=== PATIENT | female | born 1960 | race Hispanic/Latino ===

== ENCOUNTER 2017-10-26 10:31 | Inpatient (IN) | payer MEDICARE, SELFPAY ==
[2017-10-26 10:32] VITALS: BMI 31.4
--- NOTE | 2017-10-26 11:05 | C.PDOC ---
History Of Present Illness 56 y/o female presents to the ER complaining of left flank pain which has been present for 2.5 hours. She reports that the pain is similar to when she had kidney stones. She reports that she had four kidney stones in the past. Pt has nausea and and started vomiting in ED. Denies fever, diarrhea. Time Seen by Provider: 10/26/17 11:02 Chief Complaint (Nursing): Abdominal Pain History Per: Patient History/Exam Limitations: no limitations Onset/Duration Of Symptoms: Hrs Current Symptoms Are (Timing): Still Present Location Of Pain/Discomfort: LLQ, Other (left flank) Past Medical History Reviewed: Historical Data, Nursing Documentation, Vital Signs Vital Signs: Last Vital Signs Temp 98.6 F 10/26/17 14:50 Pulse 109 H 10/26/17 16:01 Resp 20 10/26/17 16:01 BP 108/66 10/26/17 16:01 Pulse Ox 96 10/26/17 16:01 - Medical History PMH: Anxiety, Depression, HTN, Hyperlipidemia, Seizures Surgical History: Cholecystectomy (07/2017) - [facility] Procedures TETANUS TOXOID ADMINIST (08/29/13) Family History: States: No Known Family Hx - Social History Hx Tobacco Use: No Hx Alcohol Use: No Hx Substance Use: No - Immunization History Hx Tetanus Toxoid Vaccination: Yes (08/29/2013) Hx Influenza Vaccination: Yes (2 weeks ago) Hx Pneumococcal Vaccination: No Review Of Systems Except As Marked, All Systems Reviewed And Found Negative. Gastrointestinal: Positive for: Nausea, Vomiting, Other (left flank pain). Negative for: Diarrhea Physical Exam - Physical Exam Appears: Non-toxic, No Acute Distress Skin: Normal Color, Warm Head: Atraumatic, Normacephalic Eye(s): bilateral: Normal Inspection Ear(s): Bilateral: Normal Nose: Normal Oral Mucosa: Moist Lips: Normal Appearing Neck: Normal, Normal ROM, Supple Chest: Symmetrical Cardiovascular: Rhythm Regular Gastrointestinal/Abdominal: Tenderness (left flank tenderness, LLQ) Back: CVA Tenderness (left) Neurological/Psych: Oriented x3, Normal Speech, Normal Motor, Normal Sensation ED Course And Treatment - Laboratory Results Result Diagrams: 10/26/17 11:18 10/26/17 11:18 Lab Interpretation: Abnormal (LEUKOCYTOPENIA) O2 Sat by Pulse Oximetry: 100 (RA) Pulse Ox Interpretation: Normal - CT Scan/US abd/pelvis CT Other Rad Studies (CT/US): Read By Radiologist, Radiology Report Reviewed CT/US Interpretation: Accession No. : [id number]. Patient Name / ID : VICTOR MANUEL DUTTA / [id number]. Exam Date : 10/26/2017 12:30:03 ( Approved ). Study Comment : Sex / Age : F / 56Y. Creator : IMANI WHITE. Dictator : Rn Liaison : Geophysical Support Specialist : IMANI WHITE. Approver2 : Report Date : 10/26 13:05:00. My Comment : . [facility] Division of Radiology. [address] [place] [address]. Tel. no. . . . Patient Name: TRA RUSH . Pt. Address: [address] [place] [address] Rec #: [id number]. [place] [address]: Divya Bermudez PA-C. Pt Order Location: [facility] : Female Age: 56 Order #: [id number]. Reason for exam: LEFT FLANK PAIN, R/O KIDNEY STONES. . . . . . CT Scan. . . ABD PELVIS W/O PO OR IV CONT Exam Date: 10/26/17. . This imaging exam was performed at [facility]. EXAM: CT Abdomen and Pelvis Without Intravenous Contrast. . CLINICAL HISTORY: 56 years old, female; Pain; Abdominal pain; Flank; Left lower quadrant (llq);. Additional info: Left flank pain, R/O kidney stones. . TECHNIQUE: Axial computed tomography images of the abdomen and pelvis without. intravenous contrast. All CT scans at this facility use one or more dose. reduction techniques, viz.: automated exposure control; ma/kV adjustment per. patient size (including targeted exams where dose is matched to indication;. i.e. head); or iterative reconstruction technique. 593 images are. submitted.Limitations: Absence of IV contrast decreases sensitivity for. detecting solid organ and vascular abnormality. Coronal and sagittal reformatted images were created and reviewed. . COMPARISON: No relevant prior studies available. . FINDINGS: Lower thorax: There is left perinephric inflammatory change with moderate to. severe left hiatal ureteronephrosis and a 6 mm left proximal ureter stone. representing acute obstructive uropathy. There is bibasilar atelectasis. Moderate hiatal hernia with herniation of gastric fundus into the chest. There. is gastric wall thickening representing underdistention versus gastritis. There is delayed emptying of the hiatal hernia versus descending congestion. versus stasis. Minimal anterior pericardial effusion. . ABDOMEN: Liver: Unremarkable. Gallbladder and bile ducts: Cholecystectomy. Pancreas: Unremarkable. No ductal dilation. Spleen: Unremarkable. No splenomegaly. Adrenals: Unremarkable. No mass. Kidneys and ureters: Nonobstructive right renal stone. Right-sided. extrarenal pelvis with mild distention of right renal pelvis and right proximal. ureter. The calcifications seen in the right hemipelvis on image 140 series 3. its posterior to the ureter. There is hyperdensity within the left kidney seen. on image 61 series 3. Stomach and bowel: Nonspecific gastric thickening likely due to under. distention. Correlation with clinical data is recommended if gastritis is. suspected. There are nonspecific fluid filled small bowel loops. These. findings can represent ileus versus enteritis versus slow transit versus. peristalsis. Appendix: Normal appendix. . PELVIS: Bladder: Partially distended bladder. Reproductive: Uterus is seen. . ABDOMEN and PELVIS: Intraperitoneal space : Unremarkable. No free air. No significant fluid. collection. Bones/joints : No acute fracture. No dislocation. Soft tissues: Umbilical hernia There is a fat-containing umbilical hernia. Vasculature: Unremarkable. No abdominal aortic aneurysm. Lymph nodes: Unremarkable. No enlarged lymph nodes. . IMPRESSION: 1. There is left perinephric inflammatory change with moderate to severe left. hiatal ureteronephrosis and a 6 mm left proximal ureter stone representing. acute obstructive uropathy. . Dictated By: IMANI WHITE. Dictated Date/Time: 10/26/17 1305. Signed By: IMANI WHITE MD. Date Signed: 10/26/171304. Transcribed By: [facility]. Transcribe Date/Time: 10/26/171304 Progress Note: Dr. Michael paged 1:[address] Michael at 2:28, he will evaluate the pt. - Physician Consult Information Physician Contacted: Messi Payton Outcome Of Conversation: accepted the pt Medical Decision Making Medical Decision Making: Impression: Left lower quadrant pain Plan: --EKG --Labs Disposition Counseled Patient/Family Regarding: Studies Performed, Diagnosis - Disposition Disposition: HOSPITALIZED Disposition Time: 13:57 Condition: STABLE - Clinical Impression Clinical Impression: Leukocytopenia, Pyelonephritis, Kidney stone on left side Decision To Admit - Pt Status Changed To: Hospital Disposition Of: Inpatient - Admit Certification Admit to Inpatient:: After my assessment, the patient will require hospitalization for at least two midnights. This is because of the severity of symptoms shown, intensity of services needed, and/or the medical risk in this patient being treated as an outpatient. - InPatient: Physician Admission Certification:: LEUKOCYTOPENIA, PYELONEPHRITIS, KIDNEY STONE - . Bed Request Type: Regular Admitting Physician: Messi Payton Patient Diagnosis: Leukocytopenia, Pyelonephritis, Kidney stone on left side
[2017-10-26] MEDS ORDERED: Sodium Chloride 0.9% 1,000 ML IV ONE ×2 (11:07→16:13)
[2017-10-26 11:29] LABS: BASO % 0.5 % (0.0-2.0); EOS % 1.1 % (0.0-4.0); HEMATOCRIT 33.6 % (34.0-47.0); LYMPH # 0.3 K/uL (1.0-4.3); LYMPH % 25.3 % (20.0-40.0); MEAN CELL VOLUME 92.6 fL (81.0-99.0); MEAN CORPUSCULAR HEMOGLOBIN 30.7 pg (27.0-31.0); MEAN CORPUSCULAR HGB CONC 33.1 g/dL (33.0-37.0); MEAN PLATELET VOLUME 7.2 fL (7.2-11.7); MONO % 1.2 % (0.0-10.0); NRBC % 0.3 % (0.0-2.0); RED CELL DISTRIBUTION WIDTH 13.7 % (11.5-14.5)
[2017-10-26 11:35] LABS: WHITE BLOOD COUNT 1.3 K/uL (4.8-10.8)
[2017-10-26 11:35] LABS: RBC URINE 63 /hpf (0-3); URINE BACTERIA MANY (<OCC); URINE BILIRUBIN NEGATIVE (NEGATIVE); URINE BLOOD 2+ (NEGATIVE); URINE COLOR Yellow (YELLOW); URINE GLUCOSE (UA) NORMAL (Normal); URINE KETONE NEGATIVE (NEGATIVE); URINE LEUKOCYTE ESTERASE 1+ Leu/uL (Negative); URINE PROTEIN NEGATIVE (NEGATIVE); URINE UROBILINOGEN NORMAL mg/dL (0.2-1.0); WBC URINE 15 /hpf (0-5)
[2017-10-26 11:42] LABS: ALKALINE PHOSPHATASE 77 U/L (38-126); ALT/SGPT 32 U/L (9-52); AST/SGOT 24 U/L (14-36); BILIRUBIN,TOTAL 0.5 mg/dL (0.2-1.3); BLOOD UREA NITROGEN 19 mg/dL (7-17); CALCIUM 8.4 mg/dl (8.6-10.4); CARBON DIOXIDE 25 mmol/L (22-30); CHLORIDE 105 mmol/L (98-107); GFR AFRICAN-AMERICAN > 60; GLUCOSE,RANDOM 151 mg/dL (65-105); SODIUM 140 mmol/L (132-148)
[2017-10-26 11:46] LABS: ALB/GLOB RATIO 1.6 (1.0-2.1)
--- NOTE | 2017-10-26 13:05 | CT ---
EXAM: CT Abdomen and Pelvis Without Intravenous Contrast CLINICAL HISTORY: 56 years old, female; Pain; Abdominal pain; Flank; Left lower quadrant (llq); Additional info: Left flank pain, R/O kidney stones TECHNIQUE: Axial computed tomography images of the abdomen and pelvis without intravenous contrast. All CT scans at this facility use one or more dose reduction techniques, viz.: automated exposure control; ma/kV adjustment per patient size (including targeted exams where dose is matched to indication; i.e. head); or iterative reconstruction technique. 593 images are submitted.Limitations: Absence of IV contrast decreases sensitivity for detecting solid organ and vascular abnormality. Coronal and sagittal reformatted images were created and reviewed. COMPARISON: No relevant prior studies available. FINDINGS: Lower thorax: There is left perinephric inflammatory change with moderate to severe left hiatal ureteronephrosis and a 6 mm left proximal ureter stone representing acute obstructive uropathy. There is bibasilar atelectasis. Moderate hiatal hernia with herniation of gastric fundus into the chest. There is gastric wall thickening representing underdistention versus gastritis. There is delayed emptying of the hiatal hernia versus descending congestion versus stasis. Minimal anterior pericardial effusion. ABDOMEN: Liver: Unremarkable. Gallbladder and bile ducts: Cholecystectomy. Pancreas: Unremarkable. No ductal dilation. Spleen: Unremarkable. No splenomegaly. Adrenals: Unremarkable. No mass. Kidneys and ureters: Nonobstructive right renal stone. Right-sided extrarenal pelvis with mild distention of right renal pelvis and right proximal ureter. The calcifications seen in the right hemipelvis on image 140 series 3 its posterior to the ureter. There is hyperdensity within the left kidney seen on image 61 series 3. Stomach and bowel: Nonspecific gastric thickening likely due to under distention. Correlation with clinical data is recommended if gastritis is suspected. There are nonspecific fluid filled small bowel loops. These findings can represent ileus versus enteritis versus slow transit versus peristalsis. Appendix: Normal appendix. PELVIS: Bladder: Partially distended bladder. Reproductive: Uterus is seen. ABDOMEN and PELVIS: Intraperitoneal space: Unremarkable. No free air. No significant fluid collection. Bones/joints: No acute fracture. No dislocation. Soft tissues: Umbilical hernia There is a fat-containing umbilical hernia. Vasculature: Unremarkable. No abdominal aortic aneurysm. Lymph nodes: Unremarkable. No enlarged lymph nodes. IMPRESSION: 1. There is left perinephric inflammatory change with moderate to severe left hiatal ureteronephrosis and a 6 mm left proximal ureter stone representing acute obstructive uropathy.
[2017-10-26] MEDS ORDERED: cefTRIAXone IV 1 gm in Dextros 50 ML IV ONE (13:50)
--- NOTE | 2017-10-26 13:57 | CP.PCM.HP ---
History of Present Illness - History of Present Illness History of Present Illness: cc: "left sided back pain" HPI: Patient is a 56 year old female with PMHx of hypertension, hx of kidney stone, Borderline schizophrenia disorder, seizure disorder s/p traumatic brain injury , major depressive disorder, anemia presenting to the ED complaining of left sided back pain. Patient's is at bedside. Patient reports she suddenly felt a sharp pain come from her left sided back. She says she also felt pain in her left lower quadrant. She said she was feeling fine prior to this morning. She denied any fevers, chills, dysuria, hematuria. She says the pain got so severe that she became nauseous. When she came to the ED , she vomited, primarily soda that she drank earlier. She says she knew it was a kidney stone because she had passed one a few years ago, after she was hospitalized for it, though she never strained her urine so it's composition is unknown. She denies taking any medications for this problem PMD: Dr. Ignacio Polanco, [facility] Psychiatrist: Dr. Hernandez- Neurologist: Tenzin Donnelly - PMD: As stated above PSHx: Cholecystectomy (4 years ago) and pelvic cystectomy (40 years ago) Allergies: Dilantin, Prozac, Darvocet Fam hx: Father- stomach cancer, Mother- NIDDM, dementia Social hx: Quit smoking ciggarettes in 2008, previously smoked 1/2 ppd 40 years. Currently uses e-ciggarettes. Quit drinking about 5 years ago, previously social drinker. Quit smoking marijuana 5 years ago. 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 2 children. Patient is full code. Patient states her will make medical directions in the event she is no longer able to do so. Present on Admission - Present on Admission Any Indicators Present on Admission: No Review of Systems - Constitutional Constitutional: absent: Chills, Fever, Frequent Falls, Night Sweats, Weakness - EENT Eyes: absent: Blind Spots, Blurred Vision Nose/Mouth/Throat: absent: Nasal Congestion, Nasal Discharge, Nose Pain - Breasts Breasts: absent: Mass, Pain, Swelling - Cardiovascular Cardiovascular: absent: Chest Pain, Claudication, Leg Edema, Palpitations, Pedal Edema - Respiratory Respiratory: absent: Cough, Dyspnea, Hemoptysis, Wheezing - Gastrointestinal Gastrointestinal: absent: Abdominal Pain, Constipation, Excessive Flatus, Fecal Incontinence, Loose Stools, Melena, Nausea, Vomiting - Genitourinary Genitourinary: Flank Pain. absent: Change in Urinary Stream, Difficulty Urinating, Dysuria, Hematuria, Pyuria - Musculoskeletal Musculoskeletal: absent: Arthralgias, Atrophy, Numbness, Stiffness, Tingling - Integumentary Integumentary: absent: Bleeding Lesions, Change in Hair, Striae, Swelling, Wounds - Psychiatric Psychiatric: absent: Anxiety, Mood Swings, Panic Attacks, Suicidal Ideation - Endocrine Endocrine: absent: Fatigue, Palpitations Past Patient History - Past Social History Smoking Status: Former Smoker Chewing Tobacco Use: No Cigar Use: No Alcohol: None Drugs: Cannabis (hx of, 5 years ago) Home Situation {Lives}: With Family - CARDIAC Hx Hypertension: Yes - NEUROLOGICAL Hx Seizures: Yes - PSYCHIATRIC Hx Anxiety: Yes Hx Depression: Yes Hx Substance Use: No - SURGICAL HISTORY Hx Cholecystectomy: Yes (07/2017) - ANESTHESIA Hx Anesthesia: Yes Hx Anesthesia Reactions: No Meds Allergies/Adverse Reactions: Allergies Allergy/AdvReac Type Severity Reaction Status Date / Time citric acid Allergy RASH Verified 10/26/17 10:40 fluoxetine HCl [From Prozac] Allergy RASH Verified 10/26/17 10:40 phenytoin sodium Allergy RASH Verified 10/26/17 10:40 [From Dilantin] phenytoin sodium extended Allergy RASH Verified 10/26/17 10:40 [From Dilantin] darvon Allergy Uncoded 10/20/16 09:33 Physical Exam - Constitutional Appears: Non-toxic, No Acute Distress - Head Exam Head Exam: ATRAUMATIC, NORMAL INSPECTION, NORMOCEPHALIC - Eye Exam Pupil Exam: NORMAL ACCOMODATION - ENT Exam ENT Exam: Mucous Membranes Moist - Neck Exam Neck exam: Positive for: Normal Inspection - Respiratory Exam Respiratory Exam: Clear to Auscultation Bilateral, NORMAL BREATHING PATTERN. absent: Prolonged Expiratory Phase, Rales, Rhonchi, Wheezes - Cardiovascular Exam Cardiovascular Exam: REGULAR RHYTHM, +S1, +S2 - GI/Abdominal Exam GI & Abdominal Exam: Normal Bowel Sounds, Soft, Tenderness (LLQ and LUQ discomfort upon palpation) - Extremities Exam Extremities exam: Positive for: normal capillary refill, normal inspection - Back Exam Back exam: tenderness (bilateral CVA tenderness, left >> right) - Neurological Exam Neurological exam: Alert, CN II-XII Intact, Oriented x3 - Psychiatric Exam Psychiatric exam: Normal Affect, Normal Mood - Skin Skin Exam: Dry, Intact, Normal Color, Warm Results - Vital Signs Recent Vital Signs: Last Vital Signs Temp 98.0 F 10/26/17 10:39 Pulse 93 H 10/26/17 12:03 Resp 18 10/26/17 12:03 BP 130/71 10/26/17 12:03 Pulse Ox 100 10/26/17 13:44 - Labs Result Diagrams: 10/26/17 11:18 10/26/17 11:18 Labs: Laboratory Results - last 24 hr 10/26/17 10/26/17 10/26/17 11:18 11:18 11:19 WBC 1.3 L* D RBC 3.63 L Hgb 11.1 D Hct 33.6 L MCV 92.6 D MCH 30.7 MCHC 33.1 RDW 13.7 Plt Count 300 D MPV 7.2 Neut % (Auto) 71.9 Lymph % (Auto) 25.3 Glynn % (Auto) 1.2 Eos % (Auto) 1.1 Baso % (Auto) 0.5 Neut # 1.0 L Lymph # 0.3 L Glynn # 0.0 Eos # 0.0 Baso # 0.0 Differential Comment Sodium 140 Potassium 4.0 Chloride 105 Carbon Dioxide 25 Anion Gap 14 BUN 19 H Creatinine 1.0 Est GFR ( Amer) > 60 Est GFR (Non-Af Amer) 57 Random Glucose 151 H Calcium 8.4 L Total Bilirubin 0.5 AST 24 ALT 32 Alkaline Phosphatase 77 Total Protein 6.0 L Albumin 3.7 Globulin 2.3 Albumin/Globulin Ratio 1.6 Lipase 70 Urine Color Yellow Urine Clarity Hazy Urine pH 6.0 Ur Specific Scarbro 1.013 Urine Protein Negative Urine Glucose (UA) Normal Urine Ketones Negative Urine Blood 2+ H Urine Nitrate Negative Urine Bilirubin Negative Urine Urobilinogen Normal Ur Leukocyte Esterase 1+ H Urine WBC (Auto) 15 H Urine RBC (Auto) 63 H Ur Squamous Epith Cells 7 H Urine Bacteria Many H Assessment & Plan - Assessment and Plan (Free Text) Assessment: Code Sepsis WBC <4 HR >100 Source is likely from Pyelonephritis/ obstructive uropathy Lactate 4.9 Patient started on Ceftriaxone 1gm IVPB Q12h Consult ID- Dr. Ontiveros Procalcitonin pending VBG shock ordered for 5:47pm, will f/u. 1L fluid bolus given prior to code sepsis. 1L fluid bonus over 30 min after code sepsis called Left Proximal Ureter Obstructive Uropathy 2/2 6mm stone Normal Saline 100cc/hr Ceftriaxone 1gm IVPB Q12h Toradol 15mg IVP Q6h PRN for moderatepain Toradol 30mg IV Q6h PRN severe pain Consult Uro- Dr. Nicholas Michael Ct Abdomen/pelvis- 10/26/17- there is left perinephric inflammatory change with mdoerate to severe left hiatal ureteronephrosis and a 6mm left proximal ureter stone representing acute obstructive uropathy Left Pyelonephritis Ceftriaxone as above Followup Blood and urine cultures Tylenol 650mg PO Q6h PRN for fever Lactate 4.9 U/A- +1 LE, WBC 15, urine bacteria- many f/u urine culture Leukopenia f/u HIV Patient is followed by Hemeoncologist outpatient. Will need to followup on discharge Hypertension Metoprolol Tartrate 25mg PO BID - hold for SBP < 100 or HR <60 Amlodipine 10mg PO Daily Schizophrenia Duloxetine HCL 60mg cap once daily in AM (6am) Duloxetine HCL 30mg cap once daily in PM (3pm) Clonazepam 0.25mg ODT once at bedtime Followup with psychiatrist, Dr. Hernandez, upon discharge EKG NSR History of Seizure disorder secondary to traumatic brain injury Phenobarbital 32.4mg TID Levetiracetam 750mg PO BID Adderall 10mg PO BID- prescribed to counter side effect of lethargy of phenobarbital, per patient Followup with neurologist, Dr. Donnelly upon discharge Prophylaxis Protonix 40mg PO Daily DVT risk score of 1- ordered bilateral SCDs Florastor 250mg PO BID- not to be given within 2 hours of antibiotic administration Heart Healthy diet, 2gm Na, Mod CHO
[2017-10-26 15:09] LABS: VENOUS BLOOD GAS BASE EXCESS -4.1 mmol/L (0.0-2.0); VENOUS BLOOD GAS PCO2 44 mmHg (40-60); VENOUS BLOOD PH 7.31 (7.32-7.43)
--- NOTE | 2017-10-26 16:14 | PCM.SEPTIC ---
Sepsis Progress Note - Reassessment Type Date of Evaluation: 10/26/17 Time of Evaluation: 15:54 Reassessment Type: Non-invasive reassessment - Non Invasive Reassessment Were the most recent vital sign reviewed: Yes Vital Sign (Latest): Temp Pulse Resp BP Pulse Ox 98.6 F 109 H 20 108/66 96 10/26/17 14:50 10/26/17 16:01 10/26/17 16:01 10/26/17 16:01 10/26/17 16:01 Cardiovascular: Yes: Regular Rate, Rhythm, Tachycardia. No: Edema, Gallop, JVD , Murmur, Bradycardia, Ectopy, Friction Rub, Irregularly Irregular Respiratory: Yes: Normal Breath Sounds. No: Decreased Breath Sounds, Crackles, Rales, Rhonchi, Stridor, Plerual Rub Capillary Refill: Normal (Less than 2 sec) Pulses: Normal Radial, Normal Dorsalis Pedis, Normal Posterior Tibialis Skin: Normal Color, Warm, Dry Was a central venous oxygen measurement obtained within 6 hours after the presentation of septic shock: No Was a bedside cardiovascular ultrasound performed within 6 hours after the presentation of septic shock: No Was a passive leg raise performed or was a fluid challenge performed within 6 hrs of the initial fluid bolus: Yes Fluid Challenge performed: Yes
[2017-10-26] MEDS: Sodium Chloride 0.9% 1,000 ML IV SCH (16:20)
--- NOTE | 2017-10-26 16:34 | CP.PCM.CON ---
Past Patient History - Past Social History Smoking Status: Former Smoker Chewing Tobacco Use: No Cigar Use: No Alcohol: None Drugs: Cannabis (hx of, 5 years ago) Home Situation {Lives}: With Family - CARDIAC Hx Hypertension: Yes - NEUROLOGICAL Hx Seizures: Yes - PSYCHIATRIC Hx Anxiety: Yes Hx Depression: Yes Hx Substance Use: No - SURGICAL HISTORY Hx Cholecystectomy: Yes (07/2017) - ANESTHESIA Hx Anesthesia: Yes Hx Anesthesia Reactions: No Meds Allergies/Adverse Reactions: Allergies Allergy/AdvReac Type Severity Reaction Status Date / Time citric acid Allergy RASH Verified 10/26/17 10:40 fluoxetine HCl [From Prozac] Allergy RASH Verified 10/26/17 10:40 phenytoin sodium Allergy RASH Verified 10/26/17 10:40 [From Dilantin] phenytoin sodium extended Allergy RASH Verified 10/26/17 10:40 [From Dilantin] darvon Allergy Uncoded 10/20/16 09:33 - Medications Medications: Current Medications Acetaminophen (Tylenol 325mg Tab) 650 mg PO Q6 PRN PRN Reason: Fever >100.4 F Amlodipine Besylate (Norvasc) 10 mg PO DAILY [facility] Duloxetine HCl (Cymbalta) 30 mg PO DAILY [facility] Duloxetine HCl (Cymbalta) 60 mg PO DAILY [facility] Home Med (Clonazepam [Clonazepam]) 0.25 mg PO HS [facility] Home Med (Dextroamphetamine/Amphetamine [Adderall 10 Mg Tablet]) 10 mg PO BID [facility] Home Med (Levetiracetam [Keppra]) 750 mg PO BID [facility] Home Med (Duloxetine Hcl [Duloxetine Hcl]) 30 mg PO ONCE ONE Stop: 10/27/17 16:00 Sodium Chloride (Sodium Chloride 0.9%) 1,000 mls @ 100 mls/hr IV .Q10H [facility] Last Admin: 10/26/17 16:20 Dose: 100 mls/hr Sodium Chloride (Sodium Chloride 0.9%) 1,000 mls @ 2,000 mls/hr IV .Q30M ONE Stop: 10/26/17 16:42 Ketorolac Tromethamine (Toradol) 30 mg IV Q6 PRN PRN Reason: Pain, severe (8-10) Ketorolac Tromethamine (Toradol) 15 mg IVP Q6 PRN PRN Reason: Pain, moderate (4-7) Metoprolol Tartrate (Lopressor) 25 mg PO BID [facility] Pantoprazole Sodium (Protonix Ec Tab) 40 mg PO DAILY [facility] Risperidone (Risperdal Tab) 2 mg PO DAILY [facility] Saccharomyces Boulardii (Florastor) 250 mg PO BID [facility] Physical Exam - Constitutional Appears: Well - Head Exam Head Exam: ATRAUMATIC, NORMAL INSPECTION, NORMOCEPHALIC - Eye Exam Eye Exam: EOMI, Normal appearance, PERRL Pupil Exam: NORMAL ACCOMODATION, PERRL - ENT Exam ENT Exam: Mucous Membranes Moist, Normal Exam - Neck Exam Neck exam: Positive for: Normal Inspection - Respiratory Exam Respiratory Exam: Decreased Breath Sounds - Cardiovascular Exam Cardiovascular Exam: REGULAR RHYTHM, +S1, +S2 - GI/Abdominal Exam GI & Abdominal Exam: Diminished Bowel Sounds, Soft - Rectal Exam Rectal Exam: Deferred Results - Vital Signs Recent Vital Signs: Last Vital Signs Temp 98.6 F 10/26/17 14:50 Pulse 109 H 10/26/17 16:01 Resp 20 10/26/17 16:01 BP 108/66 10/26/17 16:01 Pulse Ox 96 10/26/17 16:01 - Labs Result Diagrams: 10/26/17 11:18 10/26/17 11:18 Labs: Laboratory Results - last 24 hr 10/26/17 10/26/17 10/26/17 11:18 11:18 11:19 WBC 1.3 L* D RBC 3.63 L Hgb 11.1 D Hct 33.6 L MCV 92.6 D MCH 30.7 MCHC 33.1 RDW 13.7 Plt Count 300 D MPV 7.2 Neut % (Auto) 71.9 Lymph % (Auto) 25.3 [place] % (Auto) 1.2 Eos % (Auto) 1.1 Baso % (Auto) 0.5 Neut # 1.0 L Lymph # 0.3 L [place] # 0.0 Eos # 0.0 Baso # 0.0 Differential Comment pO2 VBG pH VBG pCO2 VBG HCO3 VBG Total CO2 VBG O2 Sat (Calc) VBG Base Excess VBG Potassium Glucose Lactate Crit Value Called To Crit Value Called By Crit Value Read Back Blood Gas Notified Time Sodium 140 Potassium 4.0 Chloride 105 Carbon Dioxide 25 Anion Gap 14 BUN 19 H Creatinine 1.0 Est GFR ( Amer) > 60 Est GFR (Non-Af Amer) 57 Random Glucose 151 H Calcium 8.4 L Total Bilirubin 0.5 AST 24 ALT 32 Alkaline Phosphatase 77 Total Protein 6.0 L Albumin 3.7 Globulin 2.3 Albumin/Globulin Ratio 1.6 Lipase 70 Venous Blood Potassium Urine Color Yellow Urine Clarity Hazy Urine pH 6.0 Ur Specific [place] 1.013 Urine Protein Negative Urine Glucose (UA) Normal Urine Ketones Negative Urine Blood 2+ H Urine Nitrate Negative Urine Bilirubin Negative Urine Urobilinogen Normal Ur Leukocyte Esterase 1+ H Urine WBC (Auto) 15 H Urine RBC (Auto) 63 H Ur Squamous Epith Cells 7 H Urine Bacteria Many H 10/26/17 14:47 WBC RBC Hgb Hct MCV MCH MCHC RDW Plt Count MPV Neut % (Auto) Lymph % (Auto) [place] % (Auto) Eos % (Auto) Baso % (Auto) Neut # Lymph # [place] # Eos # Baso # Differential Comment pO2 14 L VBG pH 7.31 L VBG pCO2 44 VBG HCO3 19.5 VBG Total CO2 23.6 VBG O2 Sat (Calc) 19.1 L VBG Base Excess -4.1 L VBG Potassium 3.5 L Glucose 144 H Lactate 4.9 H* Crit Value Called To Charlene hillman Crit Value Called By Fabian collins Crit Value Read Back Y Blood Gas Notified Time 1508 Sodium 139.0 Potassium Chloride 106.0 Carbon Dioxide Anion Gap BUN Creatinine Est GFR ( Amer) Est GFR (Non-Af Amer) Random Glucose Calcium Total Bilirubin AST ALT Alkaline Phosphatase Total Protein Albumin Globulin Albumin/Globulin Ratio Lipase Venous Blood Potassium 3.5 L Urine Color Urine Clarity Urine pH Ur Specific [place] Urine Protein Urine Glucose (UA) Urine Ketones Urine Blood Urine Nitrate Urine Bilirubin Urine Urobilinogen Ur Leukocyte Esterase Urine WBC (Auto) Urine RBC (Auto) Ur Squamous Epith Cells Urine Bacteria
[2017-10-26 16:59] LABS: MAGNESIUM 1.4 mg/dL (1.6-2.3); PHOSPHOROUS 1.4 mg/dL (2.5-4.5)
--- NOTE | 2017-10-26 17:19 | RAD ---
Chest x-ray single frontal view History: Sepsis. Comparison: 10/20/2016 Findings: Diffuse increased interstitial lung markings. Mild venous congestion. Mild patchy increased markings at the left lung base with some linear atelectasis. Right paratracheal prominence may represent prominent vasculature. Tortuous aorta. Mild bilateral hilar prominence. Degenerative changes in the spine and shoulders. Impression: Diffuse increased interstitial lung markings. Mild venous congestion. Mild patchy increased markings at the left lung base with some linear atelectasis. Right paratracheal prominence may represent prominent vasculature. Tortuous aorta. Mild bilateral hilar prominence.
[2017-10-26] MEDS: Magnesium Sulfate 1 gm in D5W 1 GM/100 ML BAG IVPB SCH ×2 (18:28→18:57)
[2017-10-26] MEDS: Saccharomyces Boulardi 250 mg Cap PO SCH (18:29)
[2017-10-26 18:34] LABS: INR 2.4
[2017-10-26 18:44] LABS: VENOUS BLOOD GAS BASE EXCESS -1.2 mmol/L (0.0-2.0); VENOUS BLOOD GAS PCO2 39 mmHg (40-60); VENOUS BLOOD PH 7.39 (7.32-7.43)
--- NOTE | 2017-10-26 18:50 | PCM.SEPTIC ---
Sepsis Progress Note - Reassessment Type Date of Evaluation: 10/26/17 Time of Evaluation: 18:30 Reassessment Type: Non-invasive reassessment - Non Invasive Reassessment Were the most recent vital sign reviewed: Yes Vital Sign (Latest): Temp Pulse Resp BP Pulse Ox 101.1 F H 108 H 20 99/64 L 96 10/26/17 17:25 10/26/17 17:25 10/26/17 17:25 10/26/17 18:32 10/26/17 17:25 Cardiovascular: Yes: Regular Rate, Rhythm, Tachycardia. No: Chest Non Tender, Edema, Murmur, Bradycardia Respiratory: Yes: Normal Breath Sounds. No: Decreased Breath Sounds, Crackles, Rales, Stridor, Plerual Rub Capillary Refill: Normal (Less than 2 sec) Pulses: Normal Radial, Normal Dorsalis Pedis, Normal Posterior Tibialis Skin: Normal Color, Warm, Dry - Invasive Reassessment (complete 2 of 4) Was a Central Venous Pressure Measurement obtained within 6 Hours after the presentation of septic shock: No Was a central venous oxygen measurement obtained within 6 hours after the presentation of septic shock: No Was a bedside cardiovascular ultrasound performed within 6 hours after the presentation of septic shock: No Was a passive leg raise performed or was a fluid challenge performed within 6 hrs of the initial fluid bolus: No Fluid Challenge performed: No
[2017-10-26] MEDS ORDERED: Magnesium Sulfate 1 gm in D5W 1 GM/100 ML BAG IVPB ONE (21:00)
[2017-10-26] MEDS: clonazePAM 0.25 MG TAB PO SCH (21:22)
[2017-10-27] MEDS: Sodium Chloride 0.9% 1,000 ML IV SCH ×2 (01:59→12:28)
[2017-10-27] MEDS: Potassium & Sodium Phosphate PO SCH ×2 (08:00→17:47)
[2017-10-27 08:52] LABS: VENOUS BLOOD GAS BASE EXCESS -13.1 mmol/L (0.0-2.0); VENOUS BLOOD GAS PCO2 21 mmHg (40-60); VENOUS BLOOD PH 7.32 (7.32-7.43)
[2017-10-27 09:16] LABS: ALB/GLOB RATIO 1.3 (1.0-2.1); ALKALINE PHOSPHATASE 102 U/L (38-126); ALT/SGPT 237 U/L (9-52); AST/SGOT 265 U/L (14-36); BILIRUBIN,TOTAL 2.9 mg/dL (0.2-1.3); BLOOD UREA NITROGEN 22 mg/dL (7-17); CARBON DIOXIDE 21 mmol/L (22-30); CHLORIDE 111 mmol/L (98-107); GFR AFRICAN-AMERICAN > 60; GLUCOSE,RANDOM 95 mg/dL (65-105); POTASSIUM 3.8 mmol/L (3.6-5.2); SODIUM 138 mmol/L (132-148); TOTAL PROTEIN 4.5 g/dL (6.3-8.3)
--- NOTE | 2017-10-27 09:27 | CP.PCM.PN ---
Subjective - Date & Time of Evaluation Date of Evaluation: 10/27/17 Time of Evaluation: 09:00 - Subjective Subjective: clinically same Objective - Vital Signs/Intake and Output Vital Signs (last 24 hours): Temp Pulse Resp BP Pulse Ox 99.0 F 98 H 20 95/53 L 98 10/27/17 04:36 10/27/17 04:36 10/27/17 04:36 10/27/17 04:36 10/27/17 04:36 Intake and Output: 10/27/17 10/27/17 06:59 18:59 Intake Total 2200 Balance 2200 - Medications Medications: Current Medications Acetaminophen (Tylenol 325mg Tab) 650 mg PO Q6H PRN PRN Reason: FOR FEVER OVER 100.4 F Last Admin: 10/26/17 18:40 Dose: 650 mg Amlodipine Besylate (Norvasc) 10 mg PO DAILY [facility] Clonazepam (Klonopin- Half Tab) 0.25 mg PO HS [facility] Last Admin: 10/26/17 21:22 Dose: 0.25 mg Duloxetine HCl (Cymbalta) 30 mg PO DAILY@1500 [facility] Last Admin: 10/26/17 18:31 Dose: 30 mg Duloxetine HCl (Cymbalta) 60 mg PO DAILY@0600 [facility] Last Admin: 10/27/17 04:54 Dose: 60 mg Duloxetine HCl (Cymbalta) 30 mg PO ONCE ONE Stop: 10/27/17 18:03 Enoxaparin Sodium (Lovenox) 40 mg SC DAILY [facility] Home Med (Patient's Own Control Medication Ii) 1 tab PO BID [facility] Sodium Chloride (Sodium Chloride 0.9%) 1,000 mls @ 100 mls/hr IV .Q10H [facility] Last Admin: 10/27/17 01:59 Dose: 100 mls/hr Azithromycin 500 mg/ Sodium (Chloride) 250 mls @ 250 mls/hr IVPB DAILY [facility] Ceftriaxone Sodium 1 gm/ (Dextrose) 100 mls @ 100 mls/hr IVPB Q12H [facility] Last Admin: 10/27/17 04:30 Dose: 100 mls/hr Ketorolac Tromethamine (Toradol) 30 mg IV Q6 PRN PRN Reason: Pain, severe (8-10) Last Admin: 10/27/17 08:27 Dose: 30 mg Ketorolac Tromethamine (Toradol) 15 mg IVP Q6 PRN PRN Reason: Pain, moderate (4-7) Levetiracetam (Keppra) 750 mg PO BID [facility] Last Admin: 10/26/17 18:30 Dose: 750 mg Metoprolol Tartrate (Lopressor) 25 mg PO BID [facility] Last Admin: 10/26/17 18:32 Dose: Not Given Pantoprazole Sodium (Protonix Ec Tab) 40 mg PO DAILY [facility] Phenobarbital (Phenobarbital Tab) 32.4 mg PO TID [facility] Last Admin: 10/26/17 18:31 Dose: 32.4 mg Potassium Phos/Sodium [facility] Stop: 10/27/17 17:01 Risperidone (Risperdal Tab) 2 mg PO DAILY [facility] Saccharomyces Boulardii (Florastor) 250 mg PO BID [facility] Last Admin: 10/26/17 18:29 Dose: 250 mg - Labs Labs: 10/26/17 11:18 10/27/17 08:47 PT 28.4 SECONDS (9.7-12.2) H 10/26/17 18:23 INR 2.4 10/26/17 18:23 APTT 50 SECONDS (21-34) H 10/26/17 18:23 - Constitutional Appears: Well - Head Exam Head Exam: ATRAUMATIC, NORMAL INSPECTION, NORMOCEPHALIC - Eye Exam Eye Exam: EOMI, Normal appearance, PERRL Pupil Exam: NORMAL ACCOMODATION, PERRL - ENT Exam ENT Exam: Mucous Membranes Moist, Normal Exam - Neck Exam Neck Exam: Full ROM, Normal Inspection. absent: Lymphadenopathy - Respiratory Exam Respiratory Exam: Decreased Breath Sounds - Cardiovascular Exam Cardiovascular Exam: REGULAR RHYTHM, +S1, +S2 - GI/Abdominal Exam GI & Abdominal Exam: Soft, Diminished Bowel Sounds - Rectal Exam Rectal Exam: Deferred
[2017-10-27] MEDS: Enoxaparin 40 mg Syringe SC SCH (09:56)
[2017-10-27] MEDS ORDERED: DULOXETINE HCL PO SCH (10:00)
[2017-10-27] MEDS ORDERED: Ciprofloxacin 400mg/200ml D5W 400 MG/200 ML BAG IVPB SCH (10:00)
[2017-10-27] MEDS: DEXTROAMPHETAMINE PO SCH ×3 (10:02→17:49)
[2017-10-27] MEDS: [UNRECOGNIZED DRUG - OTHER] PO SCH ×3 (10:02→17:49)
[2017-10-27] MEDS: Pantoprazole 40 mg EC Tab PO SCH (10:05)
[2017-10-27] MEDS: Saccharomyces Boulardi 250 mg Cap PO SCH ×2 (10:05→17:47)
--- NOTE | 2017-10-27 11:11 | CP.PCM.PCO ---
Physician Communication Note - Physician Communication Note Physician Communication Note: See above
[2017-10-27 11:15] LABS: BASO % 0.1 % (0.0-2.0); EOS % 0.1 % (0.0-4.0); HEMATOCRIT 26.5 % (34.0-47.0); LYMPH # 0.8 K/uL (1.0-4.3); LYMPH % 2.5 % (20.0-40.0); MEAN CELL VOLUME 91.9 fL (81.0-99.0); MEAN CORPUSCULAR HEMOGLOBIN 30.2 pg (27.0-31.0); MEAN CORPUSCULAR HGB CONC 32.9 g/dL (33.0-37.0); MEAN PLATELET VOLUME 7.8 fL (7.2-11.7); MONO # 1.4 K/uL (0.0-0.8); MONO % 4.1 % (0.0-10.0); RED CELL DISTRIBUTION WIDTH 13.9 % (11.5-14.5)
[2017-10-27 11:18] LABS: PLATELET COUNT 80 K/uL (130-400); WHITE BLOOD COUNT 33.4 K/uL (4.8-10.8)
[2017-10-27 11:35] LABS: ALB/GLOB RATIO 1.3 (1.0-2.1); ALKALINE PHOSPHATASE 104 U/L (38-126); ALT/SGPT 222 U/L (9-52); AST/SGOT 203 U/L (14-36); BILIRUBIN,TOTAL 2.4 mg/dL (0.2-1.3); BLOOD UREA NITROGEN 22 mg/dL (7-17); CALCIUM 7.1 mg/dl (8.6-10.4); CARBON DIOXIDE 22 mmol/L (22-30); CHLORIDE 110 mmol/L (98-107); GFR AFRICAN-AMERICAN > 60; GLUCOSE,RANDOM 103 mg/dL (65-105); MAGNESIUM 2.3 mg/dL (1.6-2.3); PHOSPHOROUS 4.1 mg/dL (2.5-4.5); POTASSIUM 3.8 mmol/L (3.6-5.2); SODIUM 137 mmol/L (132-148); TOTAL PROTEIN 4.5 g/dL (6.3-8.3)
[2017-10-27 11:52] LABS: INR 1.5
[2017-10-27 12:34] LABS: TOTAL CELLS COUNTED 100
[2017-10-27 12:35] LABS: NEUTROPHIL 61 % (50-75)
[2017-10-27] MEDS ORDERED: DULOXETINE HCL 30 MG PO ONE (15:59)
--- NOTE | 2017-10-27 16:04 | CP.PCM.CON ---
History of Present Illness - History of Present Illness History of Present Illness: 56 year old female presents to the ED complaining of left sided back pain. Patient's is at bedside. Patient reports she suddenly felt a sharp pain come from her left sided back. She says she also felt pain in her left lower quadrant. . When she came to the ED , . She says she knew it was a kidney stone because she had passed one a few years ago, after she was hospitalized for it, though she never strained her urine so it's composition is unknown. ID consulted for complicated UTI r/o sepsis PMH: with PMHx of hypertension, hx of kidney stone, Borderline schizophrenia disorder, seizure disorder s/p traumatic brain injury , major depressive disorder, anemia PSHx: Cholecystectomy (4 years ago) and pelvic cystectomy (40 years ago) Allergies: Dilantin, Prozac, Darvocet Fam hx: Father- stomach cancer, Mother- NIDDM, dementia Social hx: Quit smoking ciggarettes in 2008, previously smoked 1/2 ppd 40 years. Currently uses e-ciggarettes. Quit drinking about 5 years ago, previously social drinker. Quit smoking marijuana 5 years ago. 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 2 children. Review of Systems - Constitutional Constitutional: As Per HPI - EENT Eyes: absent: As Per HPI, Blind Spots, Blurred Vision, Change in Vision, Decreased Night Vision, Diplopia, Discharge, Dry Eye, Exophthalmos, Floaters, Irritation, Itchy Eyes, Loss of Peripheral Vision, Pain, Photophobia, Requires Corrective Lenses, Sees Flashes, Spots in Vision, Tunnel Vision, Other Visual Disturbances, Loss of Vision, Other Ears: absent: As Per HPI, Decreased Hearing, Ear Discharge, Ear Pain, Tinnitus, Abnormal Hearing, Disequilibrium, Dizziness, Other Nose/Mouth/Throat: absent: As Per HPI, Epistaxis, Nasal Congestion, Nasal Discharge, Nasal Obstruction, Nasal Trauma, Nose Pain, Post Nasal Drip, Sinus Pain, Sinus Pressure, Bleeding Gums, Change in Voice, Dental Pain, Dry Mouth, Dysphagia, Halitosis, Hoarsness, Lip Swelling, Mouth Lesions, Mouth Pain, Odynophagia, Sore Throat, Throat Swelling, Tongue Swelling, Facial Pain, Neck Pain, Neck Mass, Other - Breasts Breasts: absent: As Per HPI, Change in Shape, Mass, Pain, Nipple Discharge, Nipple Inversion, Skin Changes, Swelling, Other - Cardiovascular Cardiovascular: absent: As Per HPI, Acrocyanosis, Chest Pain, Chest Pain at Rest , Chest Pain with Activity, Claudication, Diaphoresis, Dyspnea, Dyspnea on Exertion, Edema, Irregular Heart Rhythm, Pain Radiating to Arm/Neck/Jaw, Leg Edema, Leg Ulcers, Lightheadedness, Orthopnea, Palpitations, Paroxysmal Nocturnal Dyspnea, Pedal Edema, Radiating Pain, Rapid Heart Rate, Slow Heart Rate, Syncope, Other - Respiratory Respiratory: absent: As Per HPI, Cough, Dyspnea, Hemoptysis, Dyspnea on Exertion , Wheezing, Snoring, Stridor, Pain on Inspiration, Chest Congestion, Excessive Mucous Production, Change in Mucous Color, Pain with Coughing, Other - Gastrointestinal Gastrointestinal: As Per HPI - Genitourinary Genitourinary: As Per HPI - Reproductive: Female Reproductive:Female: absent: As Per HPI, Amenorrhea, Amenorrhea/ Control, Currently Menstual, Cycle <21 Days, Cycle >35 Days, Cycle Variable, Menses 1-7 Days, Menses >/= 8 Days, Menses Variable, Cycle > 4 Weeks Between, No Menses for 6 Months, Heavy Menses, Light Menses, Normal Menses, Spotting Between Cycles , S/P Hysterectomy, Menopausal, Post Menopausal, Premenarche, Abnormal Vaginal Bleeding, Dysmenorrhea, Dyspareunia, Genital Lesions, Genital Pruritis, Pelvic Pain, Prolapse Symptoms, Sexual Dysfunction, Vaginal Discharge, Vaginal Dryness , Vaginal Odor, Vaginal Pruritis, Other - Menstruation Menstruation: absent: As Per HPI, Amenorrhea, Amenorrhea/ Control, Currently Menstual, Cycle <21 Days, Cycle >35 Days, Cycle Variable, Menses 1-7 Days, Menses >/= 8 Days, Menses Variable, Cycle > 4 Weeks Between, No Menses for 6 Months, Heavy Menses, Light Menses, Normal Menses, Spotting Between Cycles , S/P Hysterectomy, Menopausal, Post Menopausal, Premenarche, Abnormal Vaginal Bleeding, Dysmenorrhea, Other - Musculoskeletal Musculoskeletal: absent: As Per HPI, Abnormal Gait, Arthralgias, Atrophy, Back Pain, Deformity, Joint Swelling, Limited Range of Motion, Loss of Height, Muscle Cramps, Muscle Weakness, Myalgias, Neck Pain, Numbness, Radiating Pain into Limb, Stiffness, Tingling, Other - Integumentary Integumentary: absent: As Per HPI, Acne, Alopecia, Bleeding Lesions, Change in Hair, Change in Nails, Change in Pigmentation, Changing Lesions, Dry Skin, Erythema, Furuncle, Hirsutism, Lesions, New Lesions, Non-Healing Lesions, Photosensitivity, Pruritus, Rash, Skin Pain, Skin Ulcer, Sores, Striae, Swelling , Unusual Bruising, Wounds, Jaundice, Other - Neurological Neurological: absent: As Per HPI, Abnormal Gait, Abnormal Hearing, Abnormal Movements, Abnormal Speech, Behavioral Changes, Burning Sensations, Confusion, Convulsions, Disequilibrium, Dizziness, Numbness, Focal Weakness, Frequent Falls , Headaches, Lack of Coordination, Loss of Vision, Memory Loss, Paresthesias, Radicular Pain, Restless Legs, Sensory Deficit, Syncope, Tingling, Tremor, Vertigo, Weakness, Other Visual Disturbances, Other - Psychiatric Psychiatric: absent: As Per HPI, Abnormal Sleep Pattern, Anhedonia, Anxiety, Auditory Hallucinations, Behavioral Changes, Change in Appetite, Change in Libido, Confusion, Depression, Difficulty Concentrating, Hallucinations, Homicidal Ideation, Hopelessness, Irritability, Memory Loss, Mood Swings, Panic Attacks, Paranoia, Suicidal Ideation, Visual Hallucinations, Tactile Hallucinations, Other - Endocrine Endocrine: absent: As Per HPI, Change in Body Appearance, Change in Libido, Cold Intolorance, Deepening of Voice, Excessive Sweating, Fatigue, Flushing, Heat Intolorance, Increase in Ring/Shoe/Hat Size, Palpitations, Polydipsia, Polyphagia, Polyuria, Other - Hematologic/Lymphatic Hematologic: absent: As Per HPI, Easy Bleeding, Easy Bruising, Lymphadenopathy, Other Past Patient History - Past Medical History & Family History Past Medical History?: Yes - Past Social History Smoking Status: Never Smoked - CARDIAC Hx Hypertension: Yes - NEUROLOGICAL Hx Seizures: Yes - MUSCULOSKELETAL/RHEUMATOLOGICAL Hx Falls: No - PSYCHIATRIC Hx Substance Use: No - SURGICAL HISTORY Hx Cholecystectomy: Yes (07/2017) - ANESTHESIA Hx Anesthesia: Yes Hx Anesthesia Reactions: No Meds Allergies/Adverse Reactions: Allergies Allergy/AdvReac Type Severity Reaction Status Date / Time citric acid Allergy RASH Verified 10/26/17 10:40 fluoxetine HCl [From Prozac] Allergy RASH Verified 10/26/17 10:40 phenytoin sodium Allergy RASH Verified 10/26/17 10:40 [From Dilantin] phenytoin sodium extended Allergy RASH Verified 10/26/17 10:40 [From Dilantin] darvon Allergy Uncoded 10/20/16 09:33 - Medications Medications: Current Medications Acetaminophen (Tylenol 325mg Tab) 650 mg PO Q6H PRN PRN Reason: FOR FEVER OVER 100.4 F Last Admin: 10/26/17 18:40 Dose: 650 mg Amlodipine Besylate (Norvasc) 10 mg PO DAILY [facility] Last Admin: 10/27/17 10:00 Dose: Not Given Clonazepam (Klonopin- Half Tab) 0.25 mg PO HS [facility] Last Admin: 10/26/17 21:22 Dose: 0.25 mg Duloxetine HCl (Cymbalta) 30 mg PO DAILY@1500 [facility] Last Admin: 10/27/17 14:03 Dose: 30 mg Duloxetine HCl (Cymbalta) 60 mg PO DAILY@0600 [facility] Last Admin: 10/27/17 04:54 Dose: 60 mg Duloxetine HCl (Cymbalta) 30 mg PO ONCE ONE Stop: 10/27/17 18:03 Enoxaparin Sodium (Lovenox) 40 mg SC DAILY [facility] Last Admin: 10/27/17 09:56 Dose: 40 mg Home Med (Patient's Own Control Medication Ii) 1 tab PO BID [facility] Last Admin: 10/27/17 10:57 Dose: 1 tab Sodium Chloride (Sodium Chloride 0.9%) 1,000 mls @ 100 mls/hr IV .Q10H [facility] Last Admin: 10/27/17 12:28 Dose: 100 mls/hr Cefepime HCl 1 gm/ Dextrose 50 mls @ 100 mls/hr IVPB Q12H [facility] Last Admin: 10/27/17 13:56 Dose: 100 mls/hr Ketorolac Tromethamine (Toradol) 30 mg IV Q6 PRN PRN Reason: Pain, severe (8-10) Last Admin: 10/27/17 08:27 Dose: 30 mg Ketorolac Tromethamine (Toradol) 15 mg IVP Q6 PRN PRN Reason: Pain, moderate (4-7) Levetiracetam (Keppra) 750 mg PO BID [facility] Last Admin: 10/27/17 09:56 Dose: 750 mg Metoprolol Tartrate (Lopressor) 25 mg PO BID [facility] Last Admin: 10/26/17 18:32 Dose: Not Given Pantoprazole Sodium (Protonix Ec Tab) 40 mg PO DAILY [facility] Last Admin: 10/27/17 10:05 Dose: 40 mg Phenobarbital (Phenobarbital Tab) 32.4 mg PO TID [facility] Last Admin: 10/27/17 13:56 Dose: 32.4 mg Pneumococcal Polyvalent Vaccine (Pneumovax 23 Vaccine) 0.5 ml IM .ONCE ONE Stop: 10/29/17 10:01 Potassium Phos/Sodium [facility] Stop: 10/27/17 17:01 Last Admin: 10/27/17 08:00 Dose: 1 pkt Risperidone (Risperdal Tab) 2 mg PO DAILY [facility] Last Admin: 10/27/17 10:11 Dose: 2 mg Saccharomyces Boulardii (Florastor) 250 mg PO BID [facility] Last Admin: 10/27/17 10:05 Dose: 250 mg Physical Exam - Constitutional Appears: Non-toxic, Chronically Ill - Head Exam Head Exam: NORMOCEPHALIC - Eye Exam Eye Exam: PERRL. absent: Scleral icterus - ENT Exam ENT Exam: Mucous Membranes Dry, Normal External Ear Exam, Normal Oropharynx - Neck Exam Neck exam: Negative for: Lymphadenopathy, Thyromegaly - Respiratory Exam Respiratory Exam: Decreased Breath Sounds, Clear to Auscultation Bilateral - Cardiovascular Exam Cardiovascular Exam: REGULAR RHYTHM, +S1, +S2 - GI/Abdominal Exam GI & Abdominal Exam: Diminished Bowel Sounds, Distended, Guarding, Soft, Tenderness. absent: Organomegaly, Rebound, Rigid - Rectal Exam Rectal Exam: Deferred - Exam Exam: NORMAL INSPECTION - Extremities Exam Extremities exam: Positive for: pedal pulses present. Negative for: calf tenderness, pedal edema, tenderness - Back Exam Back exam: CVA tenderness (R). absent: CVA tenderness (L) - Neurological Exam Neurological exam: Alert, CN II-XII Intact, Oriented x3, Reflexes Normal - Psychiatric Exam Psychiatric exam: Depressed - Skin Skin Exam: Dry Results - Vital Signs Recent Vital Signs: Last Vital Signs Temp 98.8 F 10/27/17 13:27 Pulse 107 H 10/27/17 07:00 Resp 20 10/27/17 07:00 BP 108/68 10/27/17 15:05 Pulse Ox 96 10/27/17 07:00 - Labs Result Diagrams: 10/27/17 11:07 10/27/17 11:07 Labs: Laboratory Results - last 24 hr 10/26/17 10/26/17 10/26/17 14:49 14:49 16:36 WBC RBC Hgb Hct MCV MCH MCHC RDW Plt Count MPV Neut % (Auto) Lymph % (Auto) Henderson % (Auto) Eos % (Auto) Baso % (Auto) Neut # Lymph # Henderson # Eos # Baso # Neutrophils % (Manual) Band Neutrophils % Lymphocytes % (Manual) Monocytes % (Manual) Toxic Granulation Dohle Bodies Platelet Estimate Poikilocytosis (manual ESR PT INR APTT Fibrinogen D-Dimer, Quantitative pO2 VBG pH VBG pCO2 VBG HCO3 VBG Total CO2 VBG O2 Sat (Calc) VBG Base Excess VBG Potassium Sodium Chloride Glucose Lactate Crit Value Called To Crit Value Called By Crit Value Read Back Blood Gas Notified Time Potassium Carbon Dioxide Anion Gap BUN Creatinine Est GFR ( Amer) Est GFR (Non-Af Amer) Random Glucose Lactic Acid Calcium Phosphorus 1.4 L Magnesium 1.4 L Total Bilirubin AST ALT Alkaline Phosphatase C-React Prot High Sens Total Protein Albumin Globulin Albumin/Globulin Ratio Procalcitonin 28.93 H Venous Blood Potassium Urine Opiates Screen Urine Methadone Screen Ur Barbiturates Screen Ur Phencyclidine Scrn Ur Amphetamines Screen U Benzodiazepines Scrn U Oth Cocaine Metabols U Cannabinoids Screen Hepatitis A IgM Ab Hep Bs Antigen Hep B Core IgM Ab Hepatitis C Antibody HIV 1&2 Antibody Screen Negative 10/26/17 10/26/17 10/26/17 16:36 16:43 18:22 WBC RBC Hgb Hct MCV MCH MCHC RDW Plt Count MPV Neut % (Auto) Lymph % (Auto) Henderson % (Auto) Eos % (Auto) Baso % (Auto) Neut # Lymph # Henderson # Eos # Baso # Neutrophils % (Manual) Band Neutrophils % Lymphocytes % (Manual) Monocytes % (Manual) Toxic Granulation Dohle Bodies Platelet Estimate Poikilocytosis (manual ESR 2 PT INR APTT Fibrinogen D-Dimer, Quantitative pO2 VBG pH VBG pCO2 VBG HCO3 VBG Total CO2 VBG O2 Sat (Calc) VBG Base Excess VBG Potassium Sodium Chloride Glucose Lactate Crit Value Called To Crit Value Called By Crit Value Read Back Blood Gas Notified Time Potassium Carbon Dioxide Anion Gap BUN Creatinine Est GFR ( Amer) Est GFR (Non-Af Amer) Random Glucose Lactic Acid 2.5 H Calcium Phosphorus Magnesium Total Bilirubin AST ALT Alkaline Phosphatase C-React Prot High Sens > 15.00 H Total Protein Albumin Globulin Albumin/Globulin Ratio Procalcitonin Venous Blood Potassium Urine Opiates Screen Urine Methadone Screen Ur Barbiturates Screen Ur Phencyclidine Scrn Ur Amphetamines Screen U Benzodiazepines Scrn U Oth Cocaine Metabols U Cannabinoids Screen Hepatitis A IgM Ab Hep Bs Antigen Hep B Core IgM Ab Hepatitis C Antibody HIV 1&2 Antibody Screen 10/26/17 10/26/17 10/26/17 18:23 18:38 23:08 WBC RBC Hgb Hct MCV MCH MCHC RDW Plt Count MPV Neut % (Auto) Lymph % (Auto) Henderson % (Auto) Eos % (Auto) Baso % (Auto) Neut # Lymph # Henderson # Eos # Baso # Neutrophils % (Manual) Band Neutrophils % Lymphocytes % (Manual) Monocytes % (Manual) Toxic Granulation Dohle Bodies Platelet Estimate Poikilocytosis (manual ESR PT 28.4 H INR 2.4 APTT 50 H Fibrinogen D-Dimer, Quantitative pO2 42 VBG pH 7.39 VBG pCO2 39 L VBG HCO3 23.4 VBG Total CO2 24.8 VBG O2 Sat (Calc) 81.0 H VBG Base Excess -1.2 L VBG Potassium 3.8 Sodium 135.0 Chloride 107.0 Glucose 110 H Lactate 2.7 H Crit Value Called To Crit Value Called By Crit Value Read Back Blood Gas Notified Time Potassium Carbon Dioxide Anion Gap BUN Creatinine Est GFR ( Amer) Est GFR (Non-Af Amer) Random Glucose Lactic Acid Calcium Phosphorus Magnesium Total Bilirubin AST ALT Alkaline Phosphatase C-React Prot High Sens Total Protein Albumin Globulin Albumin/Globulin Ratio Procalcitonin Venous Blood Potassium 3.8 Urine Opiates Screen Negative Urine Methadone Screen Negative Ur Barbiturates Screen Positive H Ur Phencyclidine Scrn Negative Ur Amphetamines Screen Negative U Benzodiazepines Scrn Negative U Oth Cocaine Metabols Negative U Cannabinoids Screen Negative Hepatitis A IgM Ab Hep Bs Antigen Hep B Core IgM Ab Hepatitis C Antibody HIV 1&2 Antibody Screen 10/27/17 10/27/17 10/27/17 08:37 08:47 08:47 WBC RBC Hgb Hct MCV MCH MCHC RDW Plt Count MPV Neut % (Auto) Lymph % (Auto) Henderson % (Auto) Eos % (Auto) Baso % (Auto) Neut # Lymph # Henderson # Eos # Baso # Neutrophils % (Manual) Band Neutrophils % Lymphocytes % (Manual) Monocytes % (Manual) Toxic Granulation Dohle Bodies Platelet Estimate Poikilocytosis (manual ESR PT INR APTT Fibrinogen D-Dimer, Quantitative pO2 101 H VBG pH 7.32 VBG pCO2 21 L VBG HCO3 14.7 VBG Total CO2 11.4 L VBG O2 Sat (Calc) 99.1 H VBG Base Excess -13.1 L VBG Potassium 2.1 L* Sodium 144.0 138 Chloride 125.0 H 111 H Glucose 106 H Lactate 1.3 Crit Value Called To Charlene blackwell Crit Value Called By Fabian collins Crit Value Read Back Y Blood Gas Notified Time 850 Potassium 3.8 Carbon Dioxide 21 L Anion Gap 11 BUN 22 H Creatinine 1.1 Est GFR ( Amer) > 60 Est GFR (Non-Af Amer) 51 Random Glucose 95 Lactic Acid Calcium 7.0 L Phosphorus Magnesium Total Bilirubin 2.9 H AST 265 H D ALT 237 H D Alkaline Phosphatase 102 C-React Prot High Sens Total Protein 4.5 L Albumin 2.6 L D Globulin 1.9 L Albumin/Globulin Ratio 1.3 Procalcitonin 68.16 H Venous Blood Potassium 2.1 L* Urine Opiates Screen Urine Methadone Screen Ur Barbiturates Screen Ur Phencyclidine Scrn Ur Amphetamines Screen U Benzodiazepines Scrn U Oth Cocaine Metabols U Cannabinoids Screen Hepatitis A IgM Ab Hep Bs Antigen Hep B Core IgM Ab Hepatitis C Antibody HIV 1&2 Antibody Screen 10/27/17 10/27/17 10/27/17 11:07 11:07 11:07 WBC 33.4 H D RBC 2.88 L Hgb 8.7 L D Hct 26.5 L MCV 91.9 MCH 30.2 MCHC 32.9 L RDW 13.9 Plt Count 80 L D MPV 7.8 Neut % (Auto) 93.2 H Lymph % (Auto) 2.5 L Henderson % (Auto) 4.1 Eos % (Auto) 0.1 Baso % (Auto) 0.1 Neut # 31.2 H Lymph # 0.8 L Henderson # 1.4 H Eos # 0.0 Baso # 0.0 Neutrophils % (Manual) 61 Band Neutrophils % 35 H* Lymphocytes % (Manual) 2 L Monocytes % (Manual) 2 Toxic Granulation Present Dohle Bodies Present Platelet Estimate Decreased L Poikilocytosis (manual Slight ESR PT 16.9 H D INR 1.5 D APTT 32 D Fibrinogen 153 L D-Dimer, Quantitative Cancelled pO2 VBG pH VBG pCO2 VBG HCO3 VBG Total CO2 VBG O2 Sat (Calc) VBG Base Excess VBG Potassium Sodium 137 Chloride 110 H Glucose Lactate Crit Value Called To Crit Value Called By Crit Value Read Back Blood Gas Notified Time Potassium 3.8 Carbon Dioxide 22 Anion Gap 9 L BUN 22 H Creatinine 1.1 Est GFR ( Amer) > 60 Est GFR (Non-Af Amer) 51 Random Glucose 103 Lactic Acid Calcium 7.1 L Phosphorus 4.1 Magnesium 2.3 Total Bilirubin 2.4 H AST 203 H D ALT 222 H Alkaline Phosphatase 104 C-React Prot High Sens Total Protein 4.5 L Albumin 2.6 L Globulin 1.9 L Albumin/Globulin Ratio 1.3 Procalcitonin Venous Blood Potassium Urine Opiates Screen Urine Methadone Screen Ur Barbiturates Screen Ur Phencyclidine Scrn Ur Amphetamines Screen U Benzodiazepines Scrn U Oth Cocaine Metabols U Cannabinoids Screen Hepatitis A IgM Ab Hep Bs Antigen Hep B Core IgM Ab Hepatitis C Antibody HIV 1&2 Antibody Screen 10/27/17 10/27/17 12:57 13:50 WBC RBC Hgb Hct MCV MCH MCHC RDW Plt Count MPV Neut % (Auto) Lymph % (Auto) Henderson % (Auto) Eos % (Auto) Baso % (Auto) Neut # Lymph # Henderson # Eos # Baso # Neutrophils % (Manual) Band Neutrophils % Lymphocytes % (Manual) Monocytes % (Manual) Toxic Granulation Dohle Bodies Platelet Estimate Poikilocytosis (manual ESR PT INR APTT Fibrinogen D-Dimer, Quantitative > 5250 H pO2 VBG pH VBG pCO2 VBG HCO3 VBG Total CO2 VBG O2 Sat (Calc) VBG Base Excess VBG Potassium Sodium Chloride Glucose Lactate Crit Value Called To Crit Value Called By Crit Value Read Back Blood Gas Notified Time Potassium Carbon Dioxide Anion Gap BUN Creatinine Est GFR ( Amer) Est GFR (Non-Af Amer) Random Glucose Lactic Acid Calcium Phosphorus Magnesium Total Bilirubin AST ALT Alkaline Phosphatase C-React Prot High Sens Total Protein Albumin Globulin Albumin/Globulin Ratio Procalcitonin Venous Blood Potassium Urine Opiates Screen Urine Methadone Screen Ur Barbiturates Screen Ur Phencyclidine Scrn Ur Amphetamines Screen U Benzodiazepines Scrn U Oth Cocaine Metabols U Cannabinoids Screen Hepatitis A IgM Ab Negative Hep Bs Antigen Negative Hep B Core IgM Ab Negative Hepatitis C Antibody Negative HIV 1&2 Antibody Screen Assessment & Plan (1) Kidney stone on left side Status: Acute (2) Leukocytopenia Status: Acute (3) Pyelonephritis Status: Acute (4) Abdominal pain Status: Acute (5) Anemia Status: Acute (6) Cholelithiasis Status: Acute (7) Fever Status: Acute - Assessment and Plan (Free Text) Assessment: gram neg sepsis with bacteremia secondary to UTI/ Nephrolithiasis start IV Cefepime Plan: needs eval shelter IV rx ?
--- NOTE | 2017-10-27 18:21 | CP.PCM.PCO ---
Physician Communication Note - Physician Communication Note Physician Communication Note: See above
[2017-10-27] MEDS ORDERED: Iodixanol 320 MG/ML 100 ML BOTTLE IV ONE (18:52)
[2017-10-27] MEDS: clonazePAM 0.25 MG TAB PO SCH (21:32)
[2017-10-28] MEDS: Sodium Chloride 0.9% 1,000 ML IV SCH ×3 (01:57→17:49)
[2017-10-28 07:01] LABS: BASO # 0.1 K/uL (0.0-0.2); BASO % 0.4 % (0.0-2.0); EOS # 0.3 K/uL (0.0-0.7); EOS % 0.7 % (0.0-4.0); HEMATOCRIT 25.3 % (34.0-47.0); LYMPH # 0.9 K/uL (1.0-4.3); LYMPH % 2.4 % (20.0-40.0); MEAN CELL VOLUME 91.4 fL (81.0-99.0); MEAN CORPUSCULAR HEMOGLOBIN 30.1 pg (27.0-31.0); MEAN CORPUSCULAR HGB CONC 32.9 g/dL (33.0-37.0); MEAN PLATELET VOLUME 9.4 fL (7.2-11.7); MONO # 1.2 K/uL (0.0-0.8); MONO % 3.5 % (0.0-10.0); PLATELET COUNT 89 K/uL (130-400); RED CELL DISTRIBUTION WIDTH 14.2 % (11.5-14.5); WHITE BLOOD COUNT 35.8 K/uL (4.8-10.8)
[2017-10-28 07:31] LABS: ALB/GLOB RATIO 1.3 (1.0-2.1); ALKALINE PHOSPHATASE 115 U/L (38-126); ALT/SGPT 157 U/L (9-52); AST/SGOT 76 U/L (14-36); BILIRUBIN,TOTAL 0.8 mg/dL (0.2-1.3); BLOOD UREA NITROGEN 16 mg/dL (7-17); CALCIUM 7.2 mg/dl (8.6-10.4); CARBON DIOXIDE 21 mmol/L (22-30); CHLORIDE 113 mmol/L (98-107); GFR AFRICAN-AMERICAN > 60; GLUCOSE,RANDOM 68 mg/dL (65-105); POTASSIUM 3.6 mmol/L (3.6-5.2); SODIUM 140 mmol/L (132-148); TOTAL PROTEIN 4.6 g/dL (6.3-8.3)
[2017-10-28 08:56] LABS: NEUTROPHIL 60 % (50-75); TOTAL CELLS COUNTED 100
[2017-10-28] MEDS: Pantoprazole 40 mg EC Tab PO SCH (09:15)
[2017-10-28] MEDS: Enoxaparin 40 mg Syringe SC SCH (09:15)
[2017-10-28] MEDS: Saccharomyces Boulardi 250 mg Cap PO SCH ×2 (09:15→17:46)
--- NOTE | 2017-10-28 09:24 | CP.PCM.CON ---
History of Present Illness - History of Present Illness History of Present Illness: 56 year old female with a history of kidney stones, admitted with flank pain, being treated for urosepsis, with DIC, leukocytosis, anemia. The patient notes to similar symptoms a few years ago when she passed a kidney stone. She does admit to subjective fevers and chills. She denies blood problems in the past and has no abnormal bleeding and bruising. Past medical history: HTN, kidney stones Past surgical history: Denies Family history: Denies hematologic and oncologic problems Social history: Denies tobacco, alcohol, and illicit drug use. Allergies: Several, see list. Review of systems: All remaining review of systems including HEENT, cardiovascular, respiratory, gastrointestinal, genitourinary, musculoskeletal, dermatologic, neurologic, and psychiatric are negative unless mentioned in the HPI. Past Patient History - Past Medical History & Family History Past Medical History?: Yes - Past Social History Smoking Status: Never Smoked - CARDIAC Hx Hypertension: Yes - NEUROLOGICAL Hx Seizures: Yes - MUSCULOSKELETAL/RHEUMATOLOGICAL Hx Falls: No - PSYCHIATRIC Hx Substance Use: No - SURGICAL HISTORY Hx Cholecystectomy: Yes (07/2017) - ANESTHESIA Hx Anesthesia: Yes Hx Anesthesia Reactions: No Meds Allergies/Adverse Reactions: Allergies Allergy/AdvReac Type Severity Reaction Status Date / Time citric acid Allergy RASH Verified 10/26/17 10:40 fluoxetine HCl [From Prozac] Allergy RASH Verified 10/26/17 10:40 phenytoin sodium Allergy RASH Verified 10/26/17 10:40 [From Dilantin] phenytoin sodium extended Allergy RASH Verified 10/26/17 10:40 [From Dilantin] darvon Allergy Uncoded 10/20/16 09:33 - Medications Medications: Current Medications Acetaminophen (Tylenol 325mg Tab) 650 mg PO Q6H PRN PRN Reason: FOR FEVER OVER 100.4 F Last Admin: 10/26/17 18:40 Dose: 650 mg Amlodipine Besylate (Norvasc) 10 mg PO DAILY [facility] Last Admin: 10/27/17 10:00 Dose: Not Given Clonazepam (Klonopin- Half Tab) 0.25 mg PO HS [facility] Last Admin: 10/27/17 21:32 Dose: 0.25 mg Duloxetine HCl (Cymbalta) 30 mg PO DAILY@1500 [facility] Last Admin: 10/27/17 14:03 Dose: 30 mg Duloxetine HCl (Cymbalta) 60 mg PO DAILY@0600 [facility] Last Admin: 10/28/17 05:24 Dose: 60 mg Enoxaparin Sodium (Lovenox) 40 mg SC DAILY [facility] Last Admin: 10/28/17 09:15 Dose: 40 mg Home Med (Patient's Own Control Medication Ii) 1 tab PO BID [facility] Last Admin: 10/27/17 17:49 Dose: 1 tab Sodium Chloride (Sodium Chloride 0.9%) 1,000 mls @ 100 mls/hr IV .Q10H [facility] Last Admin: 10/28/17 09:23 Dose: Not Given Cefepime HCl 1 gm/ Dextrose 50 mls @ 100 mls/hr IVPB Q12H [facility] Last Admin: 10/28/17 01:57 Dose: 100 mls/hr Ketorolac Tromethamine (Toradol) 30 mg IV Q6 PRN PRN Reason: Pain, severe (8-10) Last Admin: 10/28/17 09:16 Dose: 30 mg Ketorolac Tromethamine (Toradol) 15 mg IVP Q6 PRN PRN Reason: Pain, moderate (4-7) Levetiracetam (Keppra) 750 mg PO BID [facility] Last Admin: 10/28/17 09:15 Dose: 750 mg Metoprolol Tartrate (Lopressor) 25 mg PO BID [facility] Last Admin: 10/26/17 18:32 Dose: Not Given Pantoprazole Sodium (Protonix Ec Tab) 40 mg PO DAILY [facility] Last Admin: 10/28/17 09:15 Dose: 40 mg Phenobarbital (Phenobarbital Tab) 32.4 mg PO TID [facility] Last Admin: 10/28/17 09:15 Dose: 32.4 mg Pneumococcal Polyvalent Vaccine (Pneumovax 23 Vaccine) 0.5 ml IM .ONCE ONE Stop: 10/29/17 10:01 Risperidone (Risperdal Tab) 2 mg PO DAILY [facility] Last Admin: 10/28/17 09:15 Dose: 2 mg Saccharomyces Boulardii (Florastor) 250 mg PO BID [facility] Last Admin: 10/28/17 09:15 Dose: 250 mg Physical Exam - Head Exam Head Exam: ATRAUMATIC - Eye Exam Eye Exam: Normal appearance - ENT Exam ENT Exam: Mucous Membranes Dry - Respiratory Exam Respiratory Exam: NORMAL BREATHING PATTERN - Cardiovascular Exam Cardiovascular Exam: +S1, +S2 - GI/Abdominal Exam GI & Abdominal Exam: Normal Bowel Sounds - Extremities Exam Extremities exam: Positive for: normal inspection - Neurological Exam Neurological exam: Oriented x3 - Psychiatric Exam Psychiatric exam: Normal Affect, Normal Mood - Skin Skin Exam: Warm Results - Vital Signs Recent Vital Signs: Last Vital Signs Temp 98.1 F 10/28/17 07:28 Pulse 90 10/28/17 07:28 Resp 20 10/28/17 07:28 BP 134/74 10/28/17 07:28 Pulse Ox 96 10/28/17 07:28 - Labs Result Diagrams: 10/28/17 06:52 10/28/17 06:52 Labs: Laboratory Results - last 24 hr 10/27/17 10/27/17 10/27/17 08:47 11:07 11:07 WBC 33.4 H D RBC 2.88 L Hgb 8.7 L D Hct 26.5 L MCV 91.9 MCH 30.2 MCHC 32.9 L RDW 13.9 Plt Count 80 L D MPV 7.8 Neut % (Auto) 93.2 H Lymph % (Auto) 2.5 L [place] % (Auto) 4.1 Eos % (Auto) 0.1 Baso % (Auto) 0.1 Neut # 31.2 H Lymph # 0.8 L [place] # 1.4 H Eos # 0.0 Baso # 0.0 Neutrophils % (Manual) 61 Band Neutrophils % 35 H* Lymphocytes % (Manual) 2 L Monocytes % (Manual) 2 Toxic Granulation Present Dohle Bodies Present Platelet Estimate Decreased L Polychromasia Hypochromasia (manual) Poikilocytosis (manual Slight [place] Cells Schistocytes PT INR APTT Fibrinogen D-Dimer, Quantitative Sodium 137 Potassium 3.8 Chloride 110 H Carbon Dioxide 22 Anion Gap 9 L BUN 22 H Creatinine 1.1 Est GFR ( Amer) > 60 Est GFR (Non-Af Amer) 51 Random Glucose 103 Calcium 7.1 L Phosphorus 4.1 Magnesium 2.3 Total Bilirubin 2.4 H AST 203 H D ALT 222 H Alkaline Phosphatase 104 Total Protein 4.5 L Albumin 2.6 L Globulin 1.9 L Albumin/Globulin Ratio 1.3 Procalcitonin 68.16 H Hepatitis A IgM Ab Hep Bs Antigen Hep B Core IgM Ab Hepatitis C Antibody 10/27/17 10/27/1717 11:07 12:57 13:50 WBC RBC Hgb Hct MCV MCH MCHC RDW Plt Count MPV Neut % (Auto) Lymph % (Auto) [place] % (Auto) Eos % (Auto) Baso % (Auto) Neut # Lymph # [place] # Eos # Baso # Neutrophils % (Manual) Band Neutrophils % Lymphocytes % (Manual) Monocytes % (Manual) Toxic Granulation Dohle Bodies Platelet Estimate Polychromasia Hypochromasia (manual) Poikilocytosis (manual Emily Cells Schistocytes PT 16.9 H D INR 1.5 D APTT 32 D Fibrinogen 153 L D-Dimer, Quantitative Cancelled > 5250 H Sodium Potassium Chloride Carbon Dioxide Anion Gap BUN Creatinine Est GFR ( Amer) Est GFR (Non-Af Amer) Random Glucose Calcium Phosphorus Magnesium Total Bilirubin AST ALT Alkaline Phosphatase Total Protein Albumin Globulin Albumin/Globulin Ratio Procalcitonin Hepatitis A IgM Ab Negative Hep Bs Antigen Negative Hep B Core IgM Ab Negative Hepatitis C Antibody Negative 10/28/17 10/28/17 06:52 06:52 WBC 35.8 H RBC 2.77 L Hgb 8.3 L Hct 25.3 L MCV 91.4 MCH 30.1 MCHC 32.9 L RDW 14.2 Plt Count 89 L MPV 9.4 Neut % (Auto) 93.0 H Lymph % (Auto) 2.4 L [place] % (Auto) 3.5 Eos % (Auto) 0.7 Baso % (Auto) 0.4 Neut # 33.3 H Lymph # 0.9 L [place] # 1.2 H Eos # 0.3 Baso # 0.1 Neutrophils % (Manual) 60 Band Neutrophils % 34 H* Lymphocytes % (Manual) 4 L Monocytes % (Manual) 2 Toxic Granulation Dohle Bodies Platelet Estimate Decreased L Polychromasia Slight Hypochromasia (manual) Slight Poikilocytosis (manual [place] Cells Slight Schistocytes Slight PT INR APTT Fibrinogen D-Dimer, Quantitative Sodium 140 Potassium 3.6 Chloride 113 H Carbon Dioxide 21 L Anion Gap 10 BUN 16 Creatinine 0.8 Est GFR ( Amer) > 60 Est GFR (Non-Af Amer) > 60 Random Glucose 68 Calcium 7.2 L Phosphorus Magnesium Total Bilirubin 0.8 AST 76 H D ALT 157 H D Alkaline Phosphatase 115 Total Protein 4.6 L Albumin 2.6 L Globulin 2.0 L Albumin/Globulin Ratio 1.3 Procalcitonin Hepatitis A IgM Ab Hep Bs Antigen Hep B Core IgM Ab Hepatitis C Antibody Assessment & Plan (1) DIC (disseminated intravascular coagulation) Assessment and Plan: from sepsis on antibiotics repeat fibrinogen in AM no cryopercipitate transfusion needed at this time Status: Acute (2) Thrombocytopenia Assessment and Plan: DIC and sepsis Status: Acute (3) Leukocytosis Assessment and Plan: with bandemia secondary to infection on antibiotics Status: Acute (4) Anemia Assessment and Plan: will check ferritin, retic count, b12, folate to further characterize DIC and chronic disease Thank you for this interesting consult. Status: Acute
[2017-10-28] MEDS: DEXTROAMPHETAMINE PO SCH ×2 (10:42→17:46)
[2017-10-28] MEDS: [UNRECOGNIZED DRUG - OTHER] PO SCH ×2 (10:42→17:46)
--- NOTE | 2017-10-28 11:33 | CT ---
PROCEDURE: CT Chest with contrast (Pulmonary Angiogram) HISTORY: elevated D dimer COMPARISON: None available. TECHNIQUE: Axial computed tomography images were obtained of the chest in the pulmonary arterial phase of enhancement. Coronal and sagittal reformatted images were created and reviewed. Intravenous contrast dose: Visipaque 320, 100 cc. Radiation dose: Total exam DLP = 300.68 mGy-cm. This CT exam was performed using one or more of the following dose reduction techniques: Automated exposure control, adjustment of the mA and/or kV according to patient size, and/or use of iterative reconstruction technique. FINDINGS: PULMONARY ARTERIES: Unremarkable. No pulmonary embolism. AORTA: No acute findings. No thoracic aortic aneurysm. LUNGS: Limited bilateral dependent atelectasis appreciate as well as linear atelectasis. No alveolitis appreciable bilaterally. Following pulmonary nodules of an identified: Right lung: The 3.5 mm noncalcified nodule right upper lobe image 18 series 4. 8.6 mm bilobed nodule right upper lobe image 22. 6.6 mm subpleural nodule medial mid right major fissure image 50. 7.8 mm noncalcified nodule mid to inferior right major fissure image 55 with a 4 mm nodule nearly adjacent to it in the right upper lobe superior segment image 56. Left lun.4 mm noncalcified nodule mid left major fissure image 37. 6.5 mm subpleural nodule image 28 upper left major fissure. PLEURAL SPACES: Trace bilateral pleural effusions seen greater the right than left sides. There is no pneumothorax identified. HEART: Unremarkable. No cardiomegaly. No significant pericardial effusion. LYMPH NODES: No lymphadenopathy. BONES, CHEST WALL: Unremarkable. No fracture or destructive lesion OTHER FINDINGS: A large hiatal hernia is appreciated. Mural thickening is not excluded within the h[place]go of the herniated stomach. Further clinical correlation is advised. Prior cholecystectomy incidentally noted in the right upper quadrant abdomen. IMPRESSION: Unremarkable CT pulmonary angiogram. No pulmonary embolus. Multiple pulmonary nodules scattered in the right greater than left lungs for which follow-up chest is advised in 12 months demonstrate stability of these findings. No signal lymphadenopathy. No large mass identified bilaterally including central airways. Mildly large hiatal hernia with questionably thickened gastric folds associated. Consider possible gastritis or other underlying disease. Prior cholecystectomy. Concordant preliminary report from [facility], 10/27/2017. .
--- NOTE | 2017-10-28 11:37 | CP.PCM.PN ---
Subjective - Date & Time of Evaluation Date of Evaluation: 10/28/17 Time of Evaluation: 09:00 - Subjective Subjective: guajardo sensitive klebs in blood and urine rx in progress ok to de-escalate therapy Objective - Vital Signs/Intake and Output Vital Signs (last 24 hours): Temp Pulse Resp BP Pulse Ox 98.1 F 90 20 134/74 96 10/28/17 07:28 10/28/17 07:28 10/28/17 07:28 10/28/17 07:28 10/28/17 07:28 Intake and Output: 10/28/17 10/28/17 06:59 18:59 Intake Total 1905 Balance 1905 - Medications Medications: Current Medications Acetaminophen (Tylenol 325mg Tab) 650 mg PO Q6H PRN PRN Reason: FOR FEVER OVER 100.4 F Last Admin: 10/26/17 18:40 Dose: 650 mg Amlodipine Besylate (Norvasc) 10 mg PO DAILY [facility] Last Admin: 10/28/17 10:43 Dose: 10 mg Clonazepam (Klonopin- Half Tab) 0.25 mg PO HS [facility] Last Admin: 10/27/17 21:32 Dose: 0.25 mg Duloxetine HCl (Cymbalta) 30 mg PO DAILY@1500 [facility] Last Admin: 10/27/17 14:03 Dose: 30 mg Duloxetine HCl (Cymbalta) 60 mg PO DAILY@0600 [facility] Last Admin: 10/28/17 05:24 Dose: 60 mg Enoxaparin Sodium (Lovenox) 40 mg SC DAILY [facility] Last Admin: 10/28/17 09:15 Dose: 40 mg Home Med (Patient's Own Control Medication Ii) 1 tab PO BID [facility] Last Admin: 10/28/17 10:42 Dose: 1 tab Sodium Chloride (Sodium Chloride 0.9%) 1,000 mls @ 100 mls/hr IV .Q10H [facility] Last Admin: 10/28/17 09:23 Dose: Not Given Cefepime HCl 1 gm/ Dextrose 50 mls @ 100 mls/hr IVPB Q12H [facility] Last Admin: 10/28/17 01:57 Dose: 100 mls/hr Ketorolac Tromethamine (Toradol) 30 mg IV Q6 PRN PRN Reason: Pain, severe (8-10) Last Admin: 10/28/17 09:16 Dose: 30 mg Ketorolac Tromethamine (Toradol) 15 mg IVP Q6 PRN PRN Reason: Pain, moderate (4-7) Levetiracetam (Keppra) 750 mg PO BID [facility] Last Admin: 10/28/17 09:15 Dose: 750 mg Metoprolol Tartrate (Lopressor) 25 mg PO BID [facility] Last Admin: 10/26/17 18:32 Dose: Not Given Pantoprazole Sodium (Protonix Ec Tab) 40 mg PO DAILY [facility] Last Admin: 10/28/17 09:15 Dose: 40 mg Phenobarbital (Phenobarbital Tab) 32.4 mg PO TID [facility] Last Admin: 10/28/17 09:15 Dose: 32.4 mg Pneumococcal Polyvalent Vaccine (Pneumovax 23 Vaccine) 0.5 ml IM .ONCE ONE Stop: 10/29/17 10:01 Risperidone (Risperdal Tab) 2 mg PO DAILY [facility] Last Admin: 10/28/17 09:15 Dose: 2 mg Saccharomyces Boulardii (Florastor) 250 mg PO BID [facility] Last Admin: 10/28/17 09:15 Dose: 250 mg - Labs Labs: 10/28/17 06:52 10/28/17 06:52 PT 16.9 SECONDS (9.7-12.2) H D 10/27/17 11:07 INR 1.5 D 10/27/17 11:07 APTT 32 SECONDS (21-34) D 10/27/17 11:07 Assessment and Plan (1) Kidney stone on left side Status: Acute (2) Leukocytopenia Status: Acute (3) Pyelonephritis Status: Acute (4) Abdominal pain Status: Acute (5) Anemia Status: Acute (6) Cholelithiasis Status: Acute (7) Fever Status: Acute
--- NOTE | 2017-10-28 13:11 | VASCLAB ---
PROCEDURE: Lower Extremity Venous Duplex Exam. HISTORY: Elevated D dimer PRIORS: None. TECHNIQUE: Bilateral common femoral, femoral, popliteal and posterior tibial, peroneal and great saphenous veins were evaluated. Flow was assessed with color Doppler, compressibility, assessment of phasic flow and augmentation response. Report prepared by SHAR Stevens FINDINGS: RIGHT: 1. Common Femoral Vein: 1.1. Compressibility - Fully compressible: Thrombus - None : Flow - Phasic: Augmentation -Normal: Reflux - None. 2. Femoral Vein: 2.1. Compressibility - Fully compressible: Thrombus - None : Flow - Phasic: Augmentation -Normal: Reflux - None. 3. Popliteal Vein: 3.1. Compressibility - Fully compressible: Thrombus - None : Flow - Phasic: Augmentation -Normal: Reflux - None. 4. Posterior Tibial Vein: 4.1. Compressibility - Fully compressible: Thrombus - None: Flow - Phasic: Augmentation -Normal: Reflux - None. 5. Peroneal Vein: 5.1. Compressibility - Fully compressible: Thrombus - None: Flow - Phasic: Augmentation -Normal: Reflux - None. 6. Great Saphenous Vein: 6.1. Compressibility - Fully compressible: Thrombus - None: Flow - Phasic: Augmentation - Normal: Reflux - None. LEFT: 1. Common Femoral Vein: 1.1. Compressibility - Fully compressible: Thrombus - None: Flow - Phasic: Augmentation -Normal: Reflux - None. 2. Femoral Vein: 2.1. Compressibility - Fully compressible: Thrombus - None: Flow - Phasic: Augmentation -Normal: Reflux - None. 3. Popliteal Vein: 3.1. Compressibility - Fully compressible: Thrombus - None : Flow - Phasic: Augmentation -Normal: Reflux - None. 4. Posterior Tibial Vein: 4.1. Compressibility - Fully compressible: Thrombus - None: Flow - Phasic: Augmentation -Normal: Reflux - None. 5. Peroneal Vein: 5.1. Compressibility - Fully compressible: Thrombus - None: Flow - Phasic: Augmentation -Normal: Reflux - None. 6. Great Saphenous Vein: 6.1. Compressibility - Fully compressible: Thrombus - None: Flow - Phasic: Augmentation - Normal: Reflux - None. OTHER FINDINGS: Right: None significant. Left: None significant. IMPRESSION: Right: No evidence of deep or superficial vein thrombosis of the right lower extremity. Normal valve function noted of the right side. Left: No evidence of deep or superficial vein thrombosis of the left lower extremity. Normal valve function noted of the left side.
--- NOTE | 2017-10-28 19:16 | CP.PCM.PN ---
Subjective - Date & Time of Evaluation Date of Evaluation: 10/28/17 Time of Evaluation: 07:40 - Subjective Subjective: clinically same Objective - Vital Signs/Intake and Output Vital Signs (last 24 hours): Temp Pulse Resp BP Pulse Ox 98.1 F 90 20 134/74 96 10/28/17 07:28 10/28/17 07:28 10/28/17 07:28 10/28/17 07:28 10/28/17 07:28 Intake and Output: 10/28/17 10/29/17 18:59 06:59 Intake Total 850 Balance 850 - Medications Medications: Current Medications Acetaminophen (Tylenol 325mg Tab) 650 mg PO Q6H PRN PRN Reason: FOR FEVER OVER 100.4 F Last Admin: 10/26/17 18:40 Dose: 650 mg Amlodipine Besylate (Norvasc) 10 mg PO DAILY [facility] Last Admin: 10/28/17 10:43 Dose: 10 mg Clonazepam (Klonopin- Half Tab) 0.25 mg PO HS [facility] Last Admin: 10/27/17 21:32 Dose: 0.25 mg Duloxetine HCl (Cymbalta) 30 mg PO DAILY@1500 [facility] Last Admin: 10/28/17 14:22 Dose: 30 mg Duloxetine HCl (Cymbalta) 60 mg PO DAILY@0600 [facility] Last Admin: 10/28/17 05:24 Dose: 60 mg Enoxaparin Sodium (Lovenox) 40 mg SC DAILY [facility] Last Admin: 10/28/17 09:15 Dose: 40 mg Home Med (Patient's Own Control Medication Ii) 1 tab PO BID [facility] Last Admin: 10/28/17 17:46 Dose: 1 tab Sodium Chloride (Sodium Chloride 0.9%) 1,000 mls @ 100 mls/hr IV .Q10H [facility] Last Admin: 10/28/17 17:49 Dose: 100 mls/hr Cefepime HCl 1 gm/ Dextrose 50 mls @ 100 mls/hr IVPB Q12H [facility] Last Admin: 10/28/17 13:49 Dose: 100 mls/hr Levetiracetam (Keppra) 750 mg PO BID [facility] Last Admin: 10/28/17 17:46 Dose: 750 mg Metoprolol Tartrate (Lopressor) 25 mg PO BID [facility] Last Admin: 12/16/17 18:32 Dose: Not Given Pantoprazole Sodium (Protonix Ec Tab) 40 mg PO DAILY [facility] Last Admin: 10/28/17 09:15 Dose: 40 mg Phenobarbital (Phenobarbital Tab) 32.4 mg PO TID [facility] Last Admin: 10/28/17 17:46 Dose: 32.4 mg Pneumococcal Polyvalent Vaccine (Pneumovax 23 Vaccine) 0.5 ml IM .ONCE ONE Stop: 10/29/17 10:01 Risperidone (Risperdal Tab) 2 mg PO DAILY [facility] Last Admin: 10/28/17 09:15 Dose: 2 mg Saccharomyces Boulardii (Florastor) 250 mg PO BID [facility] Last Admin: 10/28/17 17:46 Dose: 250 mg - Labs Labs: 10/28/17 06:52 10/28/17 06:52 PT 16.9 SECONDS (9.7-12.2) H D 10/27/17 11:07 INR 1.5 D 10/27/17 11:07 APTT 32 SECONDS (21-34) D 10/27/17 11:07 - Constitutional Appears: Well - Head Exam Head Exam: ATRAUMATIC, NORMAL INSPECTION, NORMOCEPHALIC - Eye Exam Eye Exam: EOMI, Normal appearance, PERRL Pupil Exam: NORMAL ACCOMODATION, PERRL - ENT Exam ENT Exam: Mucous Membranes Moist, Normal Exam - Neck Exam Neck Exam: Full ROM, Normal Inspection. absent: Lymphadenopathy - Respiratory Exam Respiratory Exam: Decreased Breath Sounds - Cardiovascular Exam Cardiovascular Exam: REGULAR RHYTHM, +S1, +S2 - GI/Abdominal Exam GI & Abdominal Exam: Soft, Diminished Bowel Sounds - Rectal Exam Rectal Exam: Deferred
[2017-10-28] MEDS: clonazePAM 0.25 MG TAB PO SCH (21:36)
[2017-10-29] MEDS: Sodium Chloride 0.9% 1,000 ML IV SCH ×2 (01:39→14:40)
[2017-10-29 07:28] LABS: BASO # 0.1 K/uL (0.0-0.2); EOS # 0.1 K/uL (0.0-0.7)
[2017-10-29 07:34] LABS: BASO % 0.5 % (0.0-2.0); EOS % 0.4 % (0.0-4.0); HEMATOCRIT 24.6 % (34.0-47.0); LYMPH # 1.2 K/uL (1.0-4.3); LYMPH % 4.3 % (20.0-40.0); MEAN CELL VOLUME 90.9 fL (81.0-99.0); MEAN CORPUSCULAR HEMOGLOBIN 30.7 pg (27.0-31.0); MEAN CORPUSCULAR HGB CONC 33.7 g/dL (33.0-37.0); MEAN PLATELET VOLUME 9.7 fL (7.2-11.7); MONO % 3.5 % (0.0-10.0); RED CELL DISTRIBUTION WIDTH 14.1 % (11.5-14.5)
[2017-10-29 07:36] LABS: PLATELET COUNT 119 K/uL (130-400)
[2017-10-29 07:40] LABS: ALB/GLOB RATIO 1.2 (1.0-2.1); ALKALINE PHOSPHATASE 127 U/L (38-126); ALT/SGPT 101 U/L (9-52); AST/SGOT 38 U/L (14-36); BILIRUBIN,TOTAL 0.9 mg/dL (0.2-1.3); BLOOD UREA NITROGEN 8 mg/dL (7-17); CALCIUM 7.7 mg/dl (8.6-10.4); CARBON DIOXIDE 22 mmol/L (22-30); CHLORIDE 110 mmol/L (98-107); GFR AFRICAN-AMERICAN > 60; GLUCOSE,RANDOM 86 mg/dL (65-105); POTASSIUM 3.2 mmol/L (3.6-5.2); SODIUM 135 mmol/L (132-148); TOTAL PROTEIN 4.6 g/dL (6.3-8.3)
[2017-10-29 09:43] LABS: FOLATE 17.1 ng/mL
[2017-10-29] MEDS: Saccharomyces Boulardi 250 mg Cap PO SCH ×2 (09:48→17:44)
[2017-10-29] MEDS: Pantoprazole 40 mg EC Tab PO SCH (09:52)
[2017-10-29] MEDS: DEXTROAMPHETAMINE PO SCH ×2 (09:55→17:44)
[2017-10-29] MEDS: [UNRECOGNIZED DRUG - OTHER] PO SCH ×2 (09:55→17:44)
[2017-10-29 09:56] LABS: NEUTROPHIL 86 % (50-75); TOTAL CELLS COUNTED 100
[2017-10-29] MEDS ORDERED: Pneumococcal 23-Valent Vaccine IM ONE (10:00)
--- NOTE | 2017-10-29 11:19 | CP.PCM.PN ---
Subjective - Date & Time of Evaluation Date of Evaluation: 10/29/17 Time of Evaluation: 08:00 - Subjective Subjective: IV rx in progress has gram neg sepsis / pyelo Objective - Vital Signs/Intake and Output Vital Signs (last 24 hours): Temp Pulse Resp BP Pulse Ox 98.8 F 83 20 132/75 96 10/29/17 07:32 10/29/17 07:32 10/29/17 07:32 10/29/17 07:32 10/29/17 07:32 Intake and Output: 10/29/17 10/29/17 06:59 18:59 Intake Total 1150 Balance 1150 - Medications Medications: Current Medications Acetaminophen (Tylenol 325mg Tab) 650 mg PO Q6H PRN PRN Reason: FOR FEVER OVER 100.4 F Last Admin: 10/26/17 18:40 Dose: 650 mg Amlodipine Besylate (Norvasc) 10 mg PO DAILY [facility] Last Admin: 10/29/17 09:49 Dose: 10 mg Clonazepam (Klonopin- Half Tab) 0.25 mg PO HS [facility] Last Admin: 10/28/17 21:36 Dose: 0.25 mg Duloxetine HCl (Cymbalta) 30 mg PO DAILY@1500 [facility] Last Admin: 10/28/17 14:22 Dose: 30 mg Duloxetine HCl (Cymbalta) 60 mg PO DAILY@0600 [facility] Last Admin: 10/29/17 05:55 Dose: 60 mg Enoxaparin Sodium (Lovenox) 40 mg SC DAILY [facility] Last Admin: 10/28/17 09:15 Dose: 40 mg Home Med (Patient's Own Control Medication Ii) 1 tab PO BID [facility] Last Admin: 10/29/17 09:55 Dose: 1 tab Sodium Chloride (Sodium Chloride 0.9%) 1,000 mls @ 100 mls/hr IV .Q10H [facility] Last Admin: 10/29/17 01:39 Dose: 100 mls/hr Cefepime HCl 1 gm/ Dextrose 50 mls @ 100 mls/hr IVPB Q12H [facility] Last Admin: 10/29/17 01:38 Dose: 100 mls/hr Levetiracetam (Keppra) 750 mg PO BID [facility] Last Admin: 10/29/17 09:48 Dose: 750 mg Metoprolol Tartrate (Lopressor) 25 mg PO BID [facility] Last Admin: 10/26/17 18:32 Dose: Not Given Pantoprazole Sodium (Protonix Ec Tab) 40 mg PO DAILY [facility] Last Admin: 10/29/17 09:52 Dose: 40 mg Phenobarbital (Phenobarbital Tab) 32.4 mg PO TID [facility] Last Admin: 10/29/17 09:51 Dose: 32.4 mg Risperidone (Risperdal Tab) 2 mg PO DAILY [facility] Last Admin: 10/29/17 09:52 Dose: 2 mg Saccharomyces Boulardii (Florastor) 250 mg PO BID [facility] Last Admin: 10/29/17 09:48 Dose: 250 mg - Labs Labs: 10/29/17 07:13 10/29/17 07:13 PT 16.9 SECONDS (9.7-12.2) H D 10/27/17 11:07 INR 1.5 D 10/27/17 11:07 APTT 32 SECONDS (21-34) D 10/27/17 11:07 - Constitutional Appears: Chronically Ill - Head Exam Head Exam: NORMOCEPHALIC - Eye Exam Eye Exam: PERRL - ENT Exam ENT Exam: Mucous Membranes Dry - Neck Exam Neck Exam: absent: Lymphadenopathy - Respiratory Exam Respiratory Exam: Decreased Breath Sounds - Cardiovascular Exam Cardiovascular Exam: REGULAR RHYTHM - GI/Abdominal Exam GI & Abdominal Exam: Distended Assessment and Plan (1) Kidney stone on left side Status: Acute (2) Leukocytopenia Status: Acute (3) Pyelonephritis Status: Acute (4) Abdominal pain Status: Acute (5) Anemia Status: Acute (6) Cholelithiasis Status: Acute (7) Fever Status: Acute
--- NOTE | 2017-10-29 18:03 | CP.PCM.PN ---
Subjective - Date & Time of Evaluation Date of Evaluation: 10/29/17 Time of Evaluation: 14:00 - Subjective Subjective: Feeling better Objective - Vital Signs/Intake and Output Vital Signs (last 24 hours): Temp Pulse Resp BP Pulse Ox 99.2 F 78 20 129/79 96 10/29/17 15:00 10/29/17 15:00 10/29/17 15:00 10/29/17 15:00 10/29/17 15:00 Intake and Output: 10/29/17 10/29/17 06:59 18:59 Intake Total 1150 Balance 1150 - Medications Medications: Current Medications Acetaminophen (Tylenol 325mg Tab) 650 mg PO Q6H PRN PRN Reason: FOR FEVER OVER 100.4 F Last Admin: 10/26/17 18:40 Dose: 650 mg Amlodipine Besylate (Norvasc) 10 mg PO DAILY [facility] Last Admin: 10/29/17 09:49 Dose: 10 mg Clonazepam (Klonopin- Half Tab) 0.25 mg PO HS [facility] Last Admin: 10/28/17 21:36 Dose: 0.25 mg Duloxetine HCl (Cymbalta) 30 mg PO DAILY@1500 [facility] Last Admin: 10/29/17 14:48 Dose: 30 mg Duloxetine HCl (Cymbalta) 60 mg PO DAILY@0600 [facility] Last Admin: 10/29/17 05:55 Dose: 60 mg Enoxaparin Sodium (Lovenox) 40 mg SC DAILY [facility] Last Admin: 10/28/17 09:15 Dose: 40 mg Home Med (Patient's Own Control Medication Ii) 1 tab PO BID [facility] Last Admin: 10/29/17 17:44 Dose: Not Given Sodium Chloride (Sodium Chloride 0.9%) 1,000 mls @ 100 mls/hr IV .Q10H [facility] Last Admin: 10/29/17 14:40 Dose: 100 mls/hr Cefepime HCl 1 gm/ Dextrose 50 mls @ 100 mls/hr IVPB Q12H [facility] Last Admin: 10/29/17 14:48 Dose: 100 mls/hr Levetiracetam (Keppra) 750 mg PO BID [facility] Last Admin: 10/29/17 17:44 Dose: Not Given Metoprolol Tartrate (Lopressor) 25 mg PO BID [facility] Last Admin: 10/26/17 18:32 Dose: Not Given Pantoprazole Sodium (Protonix Ec Tab) 40 mg PO DAILY [facility] Last Admin: 10/29/17 09:52 Dose: 40 mg Phenobarbital (Phenobarbital Tab) 32.4 mg PO TID [facility] Last Admin: 10/29/17 17:44 Dose: Not Given Risperidone (Risperdal Tab) 2 mg PO DAILY [facility] Last Admin: 10/29/17 09:52 Dose: 2 mg Saccharomyces Boulardii (Florastor) 250 mg PO BID [facility] Last Admin: 10/29/17 17:44 Dose: Not Given - Labs Labs: 10/29/17 07:13 10/29/17 07:13 PT 16.9 SECONDS (9.7-12.2) H D 10/27/17 11:07 INR 1.5 D 10/27/17 11:07 APTT 32 SECONDS (21-34) D 10/27/17 11:07 - Head Exam Head Exam: ATRAUMATIC - Eye Exam Eye Exam: Normal appearance - ENT Exam ENT Exam: Mucous Membranes Dry - Respiratory Exam Respiratory Exam: NORMAL BREATHING PATTERN - Cardiovascular Exam Cardiovascular Exam: +S1, +S2 - GI/Abdominal Exam GI & Abdominal Exam: Normal Bowel Sounds Assessment and Plan (1) DIC (disseminated intravascular coagulation) Assessment & Plan: resolving, on abx plt count improving Status: Acute (2) Thrombocytopenia Assessment & Plan: secondary to DIC improving Status: Acute (3) Leukocytosis Assessment & Plan: improving with abx Status: Acute (4) Anemia Assessment & Plan: DIC, chronic disease H/H stable Status: Acute
--- NOTE | 2017-10-29 19:13 | CP.PCM.PN ---
Subjective - Date & Time of Evaluation Date of Evaluation: 10/29/17 Time of Evaluation: 08:40 - Subjective Subjective: clinically same Objective - Vital Signs/Intake and Output Vital Signs (last 24 hours): Temp Pulse Resp BP Pulse Ox 99.3 F 83 20 149/84 95 10/29/17 19:08 10/29/17 19:08 10/29/17 19:08 10/29/17 19:08 10/29/17 19:08 - Medications Medications: Current Medications Acetaminophen (Tylenol 325mg Tab) 650 mg PO Q6H PRN PRN Reason: FOR FEVER OVER 100.4 F Last Admin: 10/26/17 18:40 Dose: 650 mg Amlodipine Besylate (Norvasc) 10 mg PO DAILY [facility] Last Admin: 10/29/17 09:49 Dose: 10 mg Clonazepam (Klonopin- Half Tab) 0.25 mg PO HS [facility] Last Admin: 10/28/17 21:36 Dose: 0.25 mg Duloxetine HCl (Cymbalta) 30 mg PO DAILY@1500 [facility] Last Admin: 10/29/17 14:48 Dose: 30 mg Duloxetine HCl (Cymbalta) 60 mg PO DAILY@0600 [facility] Last Admin: 10/29/17 05:55 Dose: 60 mg Enoxaparin Sodium (Lovenox) 40 mg SC DAILY [facility] Last Admin: 10/28/17 09:15 Dose: 40 mg Home Med (Patient's Own Control Medication Ii) 1 tab PO BID [facility] Last Admin: 10/29/17 17:44 Dose: Not Given Sodium Chloride (Sodium Chloride 0.9%) 1,000 mls @ 100 mls/hr IV .Q10H [facility] Last Admin: 10/29/17 14:40 Dose: 100 mls/hr Cefepime HCl 1 gm/ Dextrose 50 mls @ 100 mls/hr IVPB Q12H [facility] Last Admin: 10/29/17 14:48 Dose: 100 mls/hr Levetiracetam (Keppra) 750 mg PO BID [facility] Last Admin: 10/29/17 17:44 Dose: Not Given Metoprolol Tartrate (Lopressor) 25 mg PO BID [facility] Last Admin: 10/26/17 18:32 Dose: Not Given Pantoprazole Sodium (Protonix Ec Tab) 40 mg PO DAILY [facility] Last Admin: 10/29/17 09:52 Dose: 40 mg Phenobarbital (Phenobarbital Tab) 32.4 mg PO TID [facility] Last Admin: 10/29/17 17:44 Dose: Not Given Risperidone (Risperdal Tab) 2 mg PO DAILY [facility] Last Admin: 10/29/17 09:52 Dose: 2 mg Saccharomyces Boulardii (Florastor) 250 mg PO BID [facility] Last Admin: 10/29/17 17:44 Dose: Not Given - Labs Labs: 10/29/17 07:13 10/29/17 07:13 PT 16.9 SECONDS (9.7-12.2) H D 10/27/17 11:07 INR 1.5 D 10/27/17 11:07 APTT 32 SECONDS (21-34) D 10/27/17 11:07 - Constitutional Appears: Well - Head Exam Head Exam: ATRAUMATIC, NORMAL INSPECTION, NORMOCEPHALIC - Eye Exam Eye Exam: EOMI, Normal appearance, PERRL Pupil Exam: NORMAL ACCOMODATION, PERRL - ENT Exam ENT Exam: Mucous Membranes Moist, Normal Exam - Neck Exam Neck Exam: Full ROM, Normal Inspection. absent: Lymphadenopathy - Respiratory Exam Respiratory Exam: Decreased Breath Sounds - Cardiovascular Exam Cardiovascular Exam: REGULAR RHYTHM, +S1, +S2 - GI/Abdominal Exam GI & Abdominal Exam: Soft, Diminished Bowel Sounds - Rectal Exam Rectal Exam: Deferred
[2017-10-29] MEDS ORDERED: Lactated Ringer's 1,000 ML IV ONE ×2 (19:29)
[2017-10-29] MEDS ORDERED: cefTRIAXone IV 1 gm in Dextros 0 ML IVPB ONE (20:05)
[2017-10-29] MEDS ORDERED: Propofol 10 mg/ml Inj (20 ML) ONE (20:53)
[2017-10-29] MEDS ORDERED: Midazolam 2 MG/2 ML VIAL ONE (20:53)
[2017-10-29] MEDS ORDERED: Lactated Ringer's 500 ML IV ONE ×2 (20:54→22:45)
[2017-10-29] MEDS ORDERED: Lidocaine 2% Jelly (Uro-Jet) ONE (21:04)
[2017-10-29] MEDS ORDERED: Iohexol 240 (50 ml) ONE (21:04)
[2017-10-29] MEDS ORDERED: HYDROmorphone 0.5 mg/0.5 ml ISec IVP PRN (21:11)
[2017-10-29] MEDS ORDERED: Gentamicin 80 mg in 0.9% NS 80 MG/100 ML BAG IVPB ONE (23:00)
[2017-10-29] MEDS ORDERED: Gentamicin 80 mg in 0.9% NS 80 MG/100 ML BAG IVPB SCH (23:00)
[2017-10-30] MEDS: Sodium Chloride 0.9% 1,000 ML IV SCH ×3 (04:32→17:11)
[2017-10-30 08:10] LABS: BASO # 0.1 K/uL (0.0-0.2); BASO % 0.4 % (0.0-2.0); EOS # 0.1 K/uL (0.0-0.7); EOS % 0.7 % (0.0-4.0); HEMATOCRIT 26.3 % (34.0-47.0); LYMPH # 1.3 K/uL (1.0-4.3); LYMPH % 6.8 % (20.0-40.0); MEAN CELL VOLUME 90.1 fL (81.0-99.0); MEAN CORPUSCULAR HEMOGLOBIN 30.9 pg (27.0-31.0); MEAN CORPUSCULAR HGB CONC 34.3 g/dL (33.0-37.0); MEAN PLATELET VOLUME 8.7 fL (7.2-11.7); MONO % 5.2 % (0.0-10.0); NRBC % 0.2 % (0.0-2.0); PLATELET COUNT 139 K/uL (130-400); RED CELL DISTRIBUTION WIDTH 14.4 % (11.5-14.5); WHITE BLOOD COUNT 19.6 K/uL (4.8-10.8)
[2017-10-30 08:45] LABS: ALB/GLOB RATIO 0.9 (1.0-2.1); ALKALINE PHOSPHATASE 167 U/L (38-126); ALT/SGPT 85 U/L (9-52); AST/SGOT 36 U/L (14-36); BILIRUBIN,TOTAL 0.6 mg/dL (0.2-1.3); BLOOD UREA NITROGEN 4 mg/dL (7-17); CALCIUM 8.2 mg/dl (8.6-10.4); CARBON DIOXIDE 27 mmol/L (22-30); CHLORIDE 104 mmol/L (98-107); GFR AFRICAN-AMERICAN > 60; GLUCOSE,RANDOM 101 mg/dL (65-105); POTASSIUM 3.4 mmol/L (3.6-5.2); SODIUM 136 mmol/L (132-148); TOTAL PROTEIN 5.9 g/dL (6.3-8.3)
[2017-10-30 09:26] LABS: NEUTROPHIL 79 % (50-75); TOTAL CELLS COUNTED 100
[2017-10-30] MEDS: Pantoprazole 40 mg EC Tab PO SCH (11:00)
[2017-10-30] MEDS: [UNRECOGNIZED DRUG - OTHER] PO SCH ×2 (11:00→17:58)
[2017-10-30] MEDS: Saccharomyces Boulardi 250 mg Cap PO SCH ×2 (11:00→17:54)
[2017-10-30] MEDS: DEXTROAMPHETAMINE PO SCH ×2 (11:00→17:58)
[2017-10-30] MEDS ORDERED: Potassium Chloride 20 mEq ER Tab PO ONE (11:00)
--- NOTE | 2017-10-30 11:48 | RAD ---
HISTORY: LT SIDE URINARY STONE COMPARISON: No prior. 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 1.3 cm proximal left ureteral calculus. 4 mm right lower pole renal calculus. No other abnormal intra-abdominal calcifications are appreciated. Status post cholecystectomy with right upper quadrant surgical clips. Film labeled last film: Left ureteral stent noted. 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 There is contrast material seen within the proximal right ureter. BONES: Normal. OTHER FINDINGS: None. IMPRESSION: 1.3 cm proximal left ureteral calculus. 4 mm right lower pole renal calculus. Subsequent removal of left ureteral calculus and placement of left ureteral stent.
--- NOTE | 2017-10-30 13:11 | CP.PCM.PN ---
Subjective - Date & Time of Evaluation Date of Evaluation: 10/30/17 Time of Evaluation: 12:15 - Subjective Subjective: Feeling better Objective - Vital Signs/Intake and Output Vital Signs (last 24 hours): Temp Pulse Resp BP Pulse Ox 98.3 F 74 20 112/74 99 10/30/17 07:47 10/30/17 07:47 10/30/17 07:47 10/30/17 07:47 10/30/17 07:47 Intake and Output: 10/30/17 10/30/17 06:59 18:59 Intake Total 460 Output Total 150 Balance 310 - Medications Medications: Current Medications Acetaminophen (Tylenol 325mg Tab) 650 mg PO Q6H PRN PRN Reason: FOR FEVER OVER 100.4 F Last Admin: 10/30/17 02:44 Dose: 650 mg Amlodipine Besylate (Norvasc) 10 mg PO DAILY [facility] Last Admin: 10/30/17 11:00 Dose: 10 mg Clonazepam (Klonopin- Half Tab) 0.25 mg PO HS [facility] Last Admin: 10/28/17 21:36 Dose: 0.25 mg Duloxetine HCl (Cymbalta) 30 mg PO DAILY@1500 [facility] Last Admin: 10/29/17 14:48 Dose: 30 mg Duloxetine HCl (Cymbalta) 60 mg PO DAILY@0600 [facility] Last Admin: 10/30/17 05:24 Dose: 60 mg Enoxaparin Sodium (Lovenox) 40 mg SC DAILY [facility] Last Admin: 10/28/17 09:15 Dose: 40 mg Home Med (Patient's Own Control Medication Ii) 1 tab PO BID [facility] Last Admin: 10/30/17 11:00 Dose: 1 tab Sodium Chloride (Sodium Chloride 0.9%) 1,000 mls @ 100 mls/hr IV .Q10H [facility] Last Admin: 10/30/17 04:32 Dose: 100 mls/hr Cefepime HCl 1 gm/ Dextrose 50 mls @ 100 mls/hr IVPB Q12H [facility] Last Admin: 10/30/17 02:33 Dose: 100 mls/hr Gentamicin Sulfate/Sodium Chloride (Gentamicin Iv 80 Mg Premix) 80 mg in 100 mls @ 100 mls/hr IVPB Q24H [facility] Last Admin: 10/29/17 23:31 Dose: Not Given Levetiracetam (Keppra) 750 mg PO BID [facility] Last Admin: 10/30/17 11:00 Dose: 750 mg Metoprolol Tartrate (Lopressor) 25 mg PO BID [facility] Last Admin: 10/26/17 18:32 Dose: Not Given Pantoprazole Sodium (Protonix Ec Tab) 40 mg PO DAILY [facility] Last Admin: 10/30/17 11:00 Dose: 40 mg Phenobarbital (Phenobarbital Tab) 32.4 mg PO TID [facility] Last Admin: 10/30/17 11:00 Dose: 32.4 mg Risperidone (Risperdal Tab) 2 mg PO DAILY [facility] Last Admin: 10/30/17 11:00 Dose: 2 mg Saccharomyces Boulardii (Florastor) 250 mg PO BID [facility] Last Admin: 10/30/17 11:00 Dose: 250 mg Tamsulosin HCl (Flomax) 0.4 mg PO DAILY [facility] Last Admin: 10/30/17 11:00 Dose: 0.4 mg - Labs Labs: 10/30/17 07:54 10/30/17 07:54 PT 16.9 SECONDS (9.7-12.2) H D 10/27/17 11:07 INR 1.5 D 10/27/17 11:07 APTT 32 SECONDS (21-34) D 10/27/17 11:07 - Head Exam Head Exam: ATRAUMATIC - Eye Exam Eye Exam: Normal appearance - ENT Exam ENT Exam: Mucous Membranes Dry - Respiratory Exam Respiratory Exam: NORMAL BREATHING PATTERN - Cardiovascular Exam Cardiovascular Exam: +S1, +S2 - GI/Abdominal Exam GI & Abdominal Exam: Normal Bowel Sounds Assessment and Plan (1) Leukocytosis Assessment & Plan: improving with abx Status: Acute (2) Anemia Assessment & Plan: chronic disease and anemia of chronic disease Status: Acute (3) DIC (disseminated intravascular coagulation) Assessment & Plan: Resolving Status: Acute (4) Thrombocytopenia Assessment & Plan: resolving Status: Acute
--- NOTE | 2017-10-30 16:06 | RAD ---
HISTORY: compare with previous xray COMPARISON: 10/29/2017 FINDINGS: BOWEL: Unremarkable bowel gas pattern. Status post placement of left ureteral stent. There are at least 2 tiny adjacent calculi alongside the stent at approximately the junction of the middle and distal 3rd of the stent. . Previously identified proximal left ureteral large calculus is no longer evident. BONES: Normal. OTHER FINDINGS: None. IMPRESSION: Left ureteral stent. Two adjacent tiny calculi alongside distal aspect of left ureteral stent.
--- NOTE | 2017-10-30 16:53 | RAD ---
PROCEDURE: Intraoperative fluoroscopy HISTORY: LT SIDE URINARY STONE COMPARISON: Not available TECHNIQUE: Intraoperative fluoroscopy was provided for retrograde pyeloureterography. Total time of fluoroscopy was less than 1 hour. FINDINGS: Multiple fluoroscopic spot films are submitted. Films are on file for review. IMPRESSION: Fluoroscopy provided.
--- NOTE | 2017-10-30 17:57 | CP.PCM.PN ---
Subjective - Date & Time of Evaluation Date of Evaluation: 10/30/17 Time of Evaluation: 07:00 - Subjective Subjective: fever persists c/o lower abd pain no chest pain or sob wbc trending down blood and urine + Klebsiella Objective - Vital Signs/Intake and Output Vital Signs (last 24 hours): Temp Pulse Resp BP Pulse Ox 100.8 F H 105 H 20 137/68 96 10/30/17 17:10 10/30/17 15:00 10/30/17 15:00 10/30/17 15:00 10/30/17 15:00 Intake and Output: 10/30/17 10/30/17 06:59 18:59 Intake Total 460 1300 Output Total 150 Balance 310 1300 - Medications Medications: Current Medications Acetaminophen (Tylenol 325mg Tab) 650 mg PO Q6H PRN PRN Reason: FOR FEVER OVER 100.4 F Last Admin: 10/30/17 17:10 Dose: 650 mg Amlodipine Besylate (Norvasc) 10 mg PO DAILY [facility] Last Admin: 10/30/17 11:00 Dose: 10 mg Clonazepam (Klonopin- Half Tab) 0.25 mg PO HS [facility] Last Admin: 10/28/17 21:36 Dose: 0.25 mg Duloxetine HCl (Cymbalta) 30 mg PO DAILY@1500 [facility] Last Admin: 10/30/17 14:36 Dose: 30 mg Duloxetine HCl (Cymbalta) 60 mg PO DAILY@0600 [facility] Last Admin: 10/30/17 05:24 Dose: 60 mg Enoxaparin Sodium (Lovenox) 40 mg SC DAILY [facility] Last Admin: 10/28/17 09:15 Dose: 40 mg Home Med (Patient's Own Control Medication Ii) 1 tab PO BID [facility] Last Admin: 10/30/17 11:00 Dose: 1 tab Sodium Chloride (Sodium Chloride 0.9%) 1,000 mls @ 100 mls/hr IV .Q10H [facility] Last Admin: 10/30/17 17:11 Dose: 100 mls/hr Cefepime HCl 1 gm/ Dextrose 50 mls @ 100 mls/hr IVPB Q12H [facility] Last Admin: 10/30/17 14:37 Dose: 100 mls/hr Gentamicin Sulfate/Sodium Chloride (Gentamicin Iv 80 Mg Premix) 80 mg in 100 mls @ 100 mls/hr IVPB Q24H [facility] Last Admin: 10/29/17 23:31 Dose: Not Given Ketorolac Tromethamine (Toradol) 15 mg IVP Q6 PRN PRN Reason: Pain, severe (8-10) Last Admin: 10/30/17 17:12 Dose: 15 mg Levetiracetam (Keppra) 750 mg PO BID [facility] Last Admin: 10/30/17 17:54 Dose: 750 mg Metoprolol Tartrate (Lopressor) 25 mg PO BID [facility] Last Admin: 10/26/17 18:32 Dose: Not Given Pantoprazole Sodium (Protonix Ec Tab) 40 mg PO DAILY [facility] Last Admin: 10/30/17 11:00 Dose: 40 mg Phenobarbital (Phenobarbital Tab) 32.4 mg PO TID [facility] Last Admin: 10/30/17 14:36 Dose: 32.4 mg Risperidone (Risperdal Tab) 2 mg PO DAILY [facility] Last Admin: 10/30/17 11:00 Dose: 2 mg Saccharomyces Boulardii (Florastor) 250 mg PO BID [facility] Last Admin: 10/30/17 17:54 Dose: 250 mg Tamsulosin HCl (Flomax) 0.4 mg PO DAILY [facility] Last Admin: 10/30/17 11:00 Dose: 0.4 mg - Labs Labs: 10/30/17 07:54 10/30/17 07:54 PT 16.9 SECONDS (9.7-12.2) H D 10/27/17 11:07 INR 1.5 D 10/27/17 11:07 APTT 32 SECONDS (21-34) D 10/27/17 11:07 - Constitutional Appears: No Acute Distress - Head Exam Head Exam: NORMOCEPHALIC - Eye Exam Eye Exam: PERRL - ENT Exam ENT Exam: Mucous Membranes Dry - Neck Exam Neck Exam: absent: Lymphadenopathy - Respiratory Exam Respiratory Exam: Decreased Breath Sounds - Cardiovascular Exam Cardiovascular Exam: REGULAR RHYTHM - GI/Abdominal Exam GI & Abdominal Exam: Distended, Soft, Tenderness - Rectal Exam Rectal Exam: Deferred - Exam Exam: NORMAL INSPECTION - Extremities Exam Extremities Exam: absent: Pedal Edema - Back Exam Back Exam: absent: CVA tenderness (L), CVA tenderness (R) - Neurological Exam Neurological Exam: Alert, Awake, Oriented x3 - Psychiatric Exam Psychiatric exam: Depressed - Skin Skin Exam: Dry Assessment and Plan (1) Kidney stone on left side Status: Acute (2) Leukocytopenia Status: Acute (3) Pyelonephritis Status: Acute (4) Abdominal pain Status: Acute (5) Anemia Status: Acute (6) Cholelithiasis Status: Acute (7) Fever Status: Acute
[2017-10-30] MEDS: Gentamicin 80 mg in 0.9% NS 80 MG/100 ML BAG IVPB SCH (19:21)
--- NOTE | 2017-10-30 20:12 | CP.PCM.PN ---
Subjective - Date & Time of Evaluation Date of Evaluation: 10/30/17 Time of Evaluation: 08:20 - Subjective Subjective: clinically same Objective - Vital Signs/Intake and Output Vital Signs (last 24 hours): Temp Pulse Resp BP Pulse Ox 100.8 F H 105 H 20 137/68 96 10/30/17 17:10 10/30/17 15:00 10/30/17 15:00 10/30/17 15:00 10/30/17 15:00 Intake and Output: 10/30/17 10/31/17 18:59 06:59 Intake Total 1300 Balance 1300 - Medications Medications: Current Medications Acetaminophen (Tylenol 325mg Tab) 650 mg PO Q6H PRN PRN Reason: FOR FEVER OVER 100.4 F Last Admin: 10/30/17 17:10 Dose: 650 mg Amlodipine Besylate (Norvasc) 10 mg PO DAILY [facility] Last Admin: 10/30/17 11:00 Dose: 10 mg Clonazepam (Klonopin- Half Tab) 0.25 mg PO HS [facility] Last Admin: 10/28/17 21:36 Dose: 0.25 mg Duloxetine HCl (Cymbalta) 30 mg PO DAILY@1500 [facility] Last Admin: 10/30/17 14:36 Dose: 30 mg Duloxetine HCl (Cymbalta) 60 mg PO DAILY@0600 [facility] Last Admin: 10/30/17 05:24 Dose: 60 mg Enoxaparin Sodium (Lovenox) 40 mg SC DAILY [facility] Last Admin: 10/28/17 09:15 Dose: 40 mg Home Med (Patient's Own Control Medication Ii) 1 tab PO BID [facility] Last Admin: 10/30/17 17:58 Dose: 1 tab Sodium Chloride (Sodium Chloride 0.9%) 1,000 mls @ 100 mls/hr IV .Q10H [facility] Last Admin: 10/30/17 17:11 Dose: 100 mls/hr Cefepime HCl 1 gm/ Dextrose 50 mls @ 100 mls/hr IVPB Q12H [facility] Last Admin: 10/30/17 14:37 Dose: 100 mls/hr Gentamicin Sulfate/Sodium Chloride (Gentamicin Iv 80 Mg Premix) 80 mg in 100 mls @ 100 mls/hr IVPB Q12H [facility] Last Admin: 10/30/17 19:21 Dose: 100 mls/hr Ketorolac Tromethamine (Toradol) 15 mg IVP Q6 PRN PRN Reason: Pain, severe (8-10) Last Admin: 10/30/17 17:12 Dose: 15 mg Levetiracetam (Keppra) 750 mg PO BID [facility] Last Admin: 10/30/17 17:54 Dose: 750 mg Metoprolol Tartrate (Lopressor) 25 mg PO BID [facility] Last Admin: 10/26/17 18:32 Dose: Not Given Pantoprazole Sodium (Protonix Ec Tab) 40 mg PO DAILY [facility] Last Admin: 10/30/17 11:00 Dose: 40 mg Phenobarbital (Phenobarbital Tab) 32.4 mg PO TID [facility] Last Admin: 10/30/17 17:54 Dose: 32.4 mg Risperidone (Risperdal Tab) 2 mg PO DAILY [facility] Last Admin: 10/30/17 11:00 Dose: 2 mg Saccharomyces Boulardii (Florastor) 250 mg PO BID [facility] Last Admin: 10/30/17 17:54 Dose: 250 mg Tamsulosin HCl (Flomax) 0.4 mg PO DAILY [facility] Last Admin: 10/30/17 11:00 Dose: 0.4 mg - Labs Labs: 10/30/17 07:54 10/30/17 07:54 PT 16.9 SECONDS (9.7-12.2) H D 10/27/17 11:07 INR 1.5 D 10/27/17 11:07 APTT 32 SECONDS (21-34) D 10/27/17 11:07 - Constitutional Appears: Well - Head Exam Head Exam: ATRAUMATIC, NORMAL INSPECTION, NORMOCEPHALIC - Eye Exam Eye Exam: EOMI, Normal appearance, PERRL Pupil Exam: NORMAL ACCOMODATION, PERRL - ENT Exam ENT Exam: Mucous Membranes Moist, Normal Exam - Neck Exam Neck Exam: Full ROM, Normal Inspection. absent: Lymphadenopathy - Respiratory Exam Respiratory Exam: Decreased Breath Sounds - Cardiovascular Exam Cardiovascular Exam: REGULAR RHYTHM, +S1, +S2 - GI/Abdominal Exam GI & Abdominal Exam: Soft, Diminished Bowel Sounds - Rectal Exam Rectal Exam: Deferred
[2017-10-30] MEDS: clonazePAM 0.25 MG TAB PO SCH (22:02)
--- NOTE | 2017-10-30 23:24 | PCM.URO ---
Urology Progress Note - General General: Tolerating Diet - Subjective Abdominal Pain: Yes (lower abd) Flank Pain: No Nausea: No Vomiting: No Frequency: Yes Stone Passed: No Dsypnea: No Chest Pain: No - Objective Lab Studies: Reviewed Lab Results Last 24 Hours: Laboratory Results - last 24 hr 10/30/17 10/30/17 07:54 07:54 WBC 19.6 H RBC 2.92 L Hgb 9.0 L Hct 26.3 L MCV 90.1 MCH 30.9 MCHC 34.3 RDW 14.4 Plt Count 139 MPV 8.7 Neut % (Auto) 86.9 H Lymph % (Auto) 6.8 L [place] % (Auto) 5.2 Eos % (Auto) 0.7 Baso % (Auto) 0.4 Neut # 17.0 H Lymph # 1.3 [place] # 1.0 H Eos # 0.1 Baso # 0.1 Neutrophils % (Manual) 79 H Band Neutrophils % 4 H Lymphocytes % (Manual) 9 L Monocytes % (Manual) 8 Platelet Estimate Normal Polychromasia Slight Hypochromasia (manual) Slight Sodium 136 Potassium 3.4 L Chloride 104 Carbon Dioxide 27 Anion Gap 8 L BUN 4 L Creatinine 0.8 Est GFR ( Amer) > 60 Est GFR (Non-Af Amer) > 60 Random Glucose 101 Calcium 8.2 L Total Bilirubin 0.6 AST 36 ALT 85 H Alkaline Phosphatase 167 H D Total Protein 5.9 L Albumin 2.7 L Globulin 3.1 Albumin/Globulin Ratio 0.9 L Intake & Output: Intake & Output 10/30/17 10/30/17 10/31/17 06:59 18:59 06:59 Intake Total 460 1300 Output Total 150 Balance 310 1300 Intake: Intake, IV Amount 800 Left Hand 800 Oral 460 500 Output: Urine 150 Other: # Voids Urine, Voided 4 4 # Bowel Movements 0 Vital Signs: Vital Signs - 24 hr 10/30/17 10/30/17 10/30/17 00:00 07:47 15:00 Temperature 98.3 F 98.3 F 100.8 F H Pulse Rate 84 74 105 H Respiratory 20 20 20 Rate Blood Pressure 129/75 112/74 137/68 O2 Sat by Pulse 95 99 96 Oximetry 10/30/17 17:10 Temperature 100.8 F H Pulse Rate Respiratory Rate Blood Pressure O2 Sat by Pulse Oximetry - Physical Exam Abdominal Exam: Soft, Non-Distended. absent: Non-Tender (mild sp tenderness) Back: No CVA Tenderness - Plan Additional Information: IMP: stable p ureteroscopy. fever. uti. P: stent in place. on cefepime. on tamsulosin. discussed w pt - Date & Time of Note Date: 10/30/17 Time: 15:45
[2017-10-31 01:35] VITALS: O2SAT 95
[2017-10-31 04:56] LABS: RBC URINE 477 /hpf (0-3); URINE BILIRUBIN NEGATIVE (NEGATIVE); URINE BLOOD 3+ (NEGATIVE); URINE COLOR Straw (YELLOW); URINE GLUCOSE (UA) NORMAL (Normal); URINE KETONE NEGATIVE (NEGATIVE); URINE LEUKOCYTE ESTERASE TRACE Leu/uL (Negative); URINE PROTEIN 1+ mg/dL (NEGATIVE); URINE UROBILINOGEN NORMAL mg/dL (0.2-1.0); WBC URINE 3 /hpf (0-5)
[2017-10-31] MEDS: Sodium Chloride 0.9% 1,000 ML IV SCH ×4 (05:57→16:45)
[2017-10-31] MEDS: Gentamicin 80 mg in 0.9% NS 80 MG/100 ML BAG IVPB SCH ×2 (06:00→18:32)
[2017-10-31 07:08] LABS: BASO # 0.1 K/uL (0.0-0.2); BASO % 0.4 % (0.0-2.0); EOS % 0.3 % (0.0-4.0); HEMATOCRIT 25.6 % (34.0-47.0); LYMPH # 1.5 K/uL (1.0-4.3); LYMPH % 9.9 % (20.0-40.0); MEAN CELL VOLUME 89.5 fL (81.0-99.0); MEAN CORPUSCULAR HEMOGLOBIN 31.1 pg (27.0-31.0); MEAN CORPUSCULAR HGB CONC 34.8 g/dL (33.0-37.0); MEAN PLATELET VOLUME 9.4 fL (7.2-11.7); MONO % 13.2 % (0.0-10.0); NRBC % 0.1 % (0.0-2.0); PLATELET COUNT 155 K/uL (130-400); RED CELL DISTRIBUTION WIDTH 13.6 % (11.5-14.5); WHITE BLOOD COUNT 15.1 K/uL (4.8-10.8)
[2017-10-31 07:41] LABS: ALB/GLOB RATIO 1.2 (1.0-2.1); ALKALINE PHOSPHATASE 163 U/L (38-126); ALT/SGPT 67 U/L (9-52); AST/SGOT 31 U/L (14-36); BILIRUBIN,TOTAL 0.6 mg/dL (0.2-1.3); BLOOD UREA NITROGEN 5 mg/dL (7-17); CALCIUM 8.1 mg/dl (8.6-10.4); CARBON DIOXIDE 24 mmol/L (22-30); CHLORIDE 104 mmol/L (98-107); GFR AFRICAN-AMERICAN > 60; GLUCOSE,RANDOM 116 mg/dL (65-105); SODIUM 134 mmol/L (132-148)
[2017-10-31 08:50] LABS: EOSINOPHIL 1 % (0-4); MYELOCYTE 1 % (0-0); NEUTROPHIL 60 % (50-75); TOTAL CELLS COUNTED 100
[2017-10-31] MEDS: Saccharomyces Boulardi 250 mg Cap PO SCH ×2 (10:48→18:31)
[2017-10-31] MEDS: Pantoprazole 40 mg EC Tab PO SCH (10:53)
[2017-10-31] MEDS: [UNRECOGNIZED DRUG - OTHER] PO SCH ×2 (10:54→18:32)
[2017-10-31] MEDS: DEXTROAMPHETAMINE PO SCH ×2 (10:54→18:32)
[2017-10-31] MEDS ORDERED: Potassium Chloride 20 mEq ER Tab PO STA (13:26)
--- NOTE | 2017-10-31 16:42 | CP.PCM.PN ---
Subjective - Date & Time of Evaluation Date of Evaluation: 10/31/17 Time of Evaluation: 07:40 - Subjective Subjective: clinically same Objective - Vital Signs/Intake and Output Vital Signs (last 24 hours): Temp Pulse Resp BP Pulse Ox 99.5 F 107 H 20 132/78 95 10/31/17 15:00 10/31/17 15:00 10/31/17 15:00 10/31/17 15:00 10/31/17 15:00 Intake and Output: 10/31/17 10/31/17 06:59 18:59 Intake Total 1280 550 Balance 1280 550 - Medications Medications: Current Medications Acetaminophen (Tylenol 325mg Tab) 650 mg PO Q6H PRN PRN Reason: FOR FEVER OVER 100.4 F Last Admin: 10/30/17 17:10 Dose: 650 mg Amlodipine Besylate (Norvasc) 10 mg PO DAILY [facility] Last Admin: 10/31/17 10:50 Dose: 10 mg Clonazepam (Klonopin- Half Tab) 0.25 mg PO HS [facility] Last Admin: 10/30/17 22:02 Dose: 0.25 mg Duloxetine HCl (Cymbalta) 30 mg PO DAILY@1500 [facility] Last Admin: 10/31/17 14:01 Dose: 30 mg Duloxetine HCl (Cymbalta) 60 mg PO DAILY@0600 [facility] Last Admin: 10/31/17 05:48 Dose: 60 mg Enoxaparin Sodium (Lovenox) 40 mg SC DAILY [facility] Last Admin: 10/28/17 09:15 Dose: 40 mg Home Med (Patient's Own Control Medication Ii) 1 tab PO BID [facility] Last Admin: 10/31/17 10:54 Dose: 1 tab Sodium Chloride (Sodium Chloride 0.9%) 1,000 mls @ 100 mls/hr IV .Q10H [facility] Last Admin: 10/31/17 05:58 Dose: 100 mls/hr Cefepime HCl 1 gm/ Dextrose 50 mls @ 100 mls/hr IVPB Q12H [facility] Last Admin: 10/31/17 13:59 Dose: Not Given Gentamicin Sulfate/Sodium Chloride (Gentamicin Iv 80 Mg Premix) 80 mg in 100 mls @ 100 mls/hr IVPB Q12H [facility] Last Admin: 10/31/17 06:00 Dose: 100 mls/hr Ketorolac Tromethamine (Toradol) 15 mg IVP Q6 PRN PRN Reason: Pain, severe (8-10) Last Admin: 10/30/17 17:12 Dose: 15 mg Levetiracetam (Keppra) 750 mg PO BID [facility] Last Admin: 10/31/17 10:49 Dose: 750 mg Metoprolol Tartrate (Lopressor) 25 mg PO BID [facility] Last Admin: 10/26/17 18:32 Dose: Not Given Pantoprazole Sodium (Protonix Ec Tab) 40 mg PO DAILY [facility] Last Admin: 10/31/17 10:53 Dose: 40 mg Phenobarbital (Phenobarbital Tab) 32.4 mg PO TID [facility] Last Admin: 10/31/17 14:01 Dose: 32.4 mg Risperidone (Risperdal Tab) 2 mg PO DAILY [facility] Last Admin: 10/31/17 10:50 Dose: 2 mg Saccharomyces Boulardii (Florastor) 250 mg PO BID [facility] Last Admin: 10/31/17 10:48 Dose: 250 mg Tamsulosin HCl (Flomax) 0.4 mg PO DAILY [facility] Last Admin: 10/31/17 10:48 Dose: 0.4 mg - Labs Labs: 10/31/17 07:02 10/31/17 07:02 PT 16.9 SECONDS (9.7-12.2) H D 10/27/17 11:07 INR 1.5 D 10/27/17 11:07 APTT 32 SECONDS (21-34) D 10/27/17 11:07 - Constitutional Appears: Well - Head Exam Head Exam: ATRAUMATIC, NORMAL INSPECTION, NORMOCEPHALIC - Eye Exam Eye Exam: EOMI, Normal appearance, PERRL Pupil Exam: NORMAL ACCOMODATION, PERRL - ENT Exam ENT Exam: Mucous Membranes Moist, Normal Exam - Neck Exam Neck Exam: Full ROM, Normal Inspection. absent: Lymphadenopathy - Respiratory Exam Respiratory Exam: Decreased Breath Sounds - Cardiovascular Exam Cardiovascular Exam: REGULAR RHYTHM, +S1, +S2 - GI/Abdominal Exam GI & Abdominal Exam: Soft, Diminished Bowel Sounds - Rectal Exam Rectal Exam: Deferred
--- NOTE | 2017-10-31 17:09 | CP.PCM.PN ---
Subjective - Date & Time of Evaluation Date of Evaluation: 10/31/17 Time of Evaluation: 16:00 - Subjective Subjective: Feeling better Objective - Vital Signs/Intake and Output Vital Signs (last 24 hours): Temp Pulse Resp BP Pulse Ox 99.5 F 107 H 20 132/78 95 10/31/17 15:00 10/31/17 16:20 10/31/17 15:00 10/31/17 16:20 10/31/17 16:20 Intake and Output: 10/31/17 10/31/17 06:59 18:59 Intake Total 1280 550 Balance 1280 550 - Medications Medications: Current Medications Acetaminophen (Tylenol 325mg Tab) 650 mg PO Q6H PRN PRN Reason: FOR FEVER OVER 100.4 F Last Admin: 10/30/17 17:10 Dose: 650 mg Amlodipine Besylate (Norvasc) 10 mg PO DAILY [facility] Last Admin: 10/31/17 10:50 Dose: 10 mg Clonazepam (Klonopin- Half Tab) 0.25 mg PO HS [facility] Last Admin: 10/30/17 22:02 Dose: 0.25 mg Duloxetine HCl (Cymbalta) 30 mg PO DAILY@1500 [facility] Last Admin: 10/31/17 14:01 Dose: 30 mg Duloxetine HCl (Cymbalta) 60 mg PO DAILY@0600 [facility] Last Admin: 10/31/17 05:48 Dose: 60 mg Enoxaparin Sodium (Lovenox) 40 mg SC DAILY [facility] Last Admin: 10/28/17 09:15 Dose: 40 mg Home Med (Patient's Own Control Medication Ii) 1 tab PO BID [facility] Last Admin: 10/31/17 10:54 Dose: 1 tab Sodium Chloride (Sodium Chloride 0.9%) 1,000 mls @ 100 mls/hr IV .Q10H [facility] Last Admin: 10/31/17 16:45 Dose: 100 mls/hr Cefepime HCl 1 gm/ Dextrose 50 mls @ 100 mls/hr IVPB Q12H [facility] Last Admin: 10/31/17 13:59 Dose: Not Given Gentamicin Sulfate/Sodium Chloride (Gentamicin Iv 80 Mg Premix) 80 mg in 100 mls @ 100 mls/hr IVPB Q12H [facility] Last Admin: 10/31/17 06:00 Dose: 100 mls/hr Ketorolac Tromethamine (Toradol) 15 mg IVP Q6 PRN PRN Reason: Pain, severe (8-10) Last Admin: 10/30/17 17:12 Dose: 15 mg Levetiracetam (Keppra) 750 mg PO BID [facility] Last Admin: 10/31/17 10:49 Dose: 750 mg Metoprolol Tartrate (Lopressor) 25 mg PO BID [facility] Last Admin: 10/26/17 18:32 Dose: Not Given Pantoprazole Sodium (Protonix Ec Tab) 40 mg PO DAILY [facility] Last Admin: 10/31/17 10:53 Dose: 40 mg Phenobarbital (Phenobarbital Tab) 32.4 mg PO TID [facility] Last Admin: 10/31/17 14:01 Dose: 32.4 mg Risperidone (Risperdal Tab) 2 mg PO DAILY [facility] Last Admin: 10/31/17 10:50 Dose: 2 mg Saccharomyces Boulardii (Florastor) 250 mg PO BID [facility] Last Admin: 10/31/17 10:48 Dose: 250 mg Tamsulosin HCl (Flomax) 0.4 mg PO DAILY [facility] Last Admin: 10/31/17 10:48 Dose: 0.4 mg - Labs Labs: 10/31/17 07:02 10/31/17 07:02 PT 16.9 SECONDS (9.7-12.2) H D 10/27/17 11:07 INR 1.5 D 10/27/17 11:07 APTT 32 SECONDS (21-34) D 10/27/17 11:07 - Head Exam Head Exam: ATRAUMATIC - Eye Exam Eye Exam: Normal appearance - ENT Exam ENT Exam: Mucous Membranes Dry - Respiratory Exam Respiratory Exam: NORMAL BREATHING PATTERN - Cardiovascular Exam Cardiovascular Exam: +S1, +S2 - GI/Abdominal Exam GI & Abdominal Exam: Normal Bowel Sounds Assessment and Plan (1) Leukocytosis Assessment & Plan: improving with antibiotics Status: Acute (2) Anemia Assessment & Plan: resolved DIC chronic disease Status: Acute
--- NOTE | 2017-10-31 18:15 | CP.PCM.PN ---
Subjective - Date & Time of Evaluation Date of Evaluation: 10/31/17 Time of Evaluation: 08:00 - Subjective Subjective: iv rx in progress feels better Objective - Vital Signs/Intake and Output Vital Signs (last 24 hours): Temp Pulse Resp BP Pulse Ox 99.5 F 107 H 20 132/78 95 10/31/17 15:00 10/31/17 16:20 10/31/17 15:00 10/31/17 16:20 10/31/17 16:20 Intake and Output: 10/31/17 10/31/17 06:59 18:59 Intake Total 1280 550 Balance 1280 550 - Medications Medications: Current Medications Acetaminophen (Tylenol 325mg Tab) 650 mg PO Q6H PRN PRN Reason: FOR FEVER OVER 100.4 F Last Admin: 10/30/17 17:10 Dose: 650 mg Amlodipine Besylate (Norvasc) 10 mg PO DAILY [facility] Last Admin: 10/31/17 10:50 Dose: 10 mg Clonazepam (Klonopin- Half Tab) 0.25 mg PO HS [facility] Last Admin: 10/30/17 22:02 Dose: 0.25 mg Duloxetine HCl (Cymbalta) 30 mg PO DAILY@1500 [facility] Last Admin: 10/31/17 14:01 Dose: 30 mg Duloxetine HCl (Cymbalta) 60 mg PO DAILY@0600 [facility] Last Admin: 10/31/17 05:48 Dose: 60 mg Enoxaparin Sodium (Lovenox) 40 mg SC DAILY [facility] Last Admin: 10/28/17 09:15 Dose: 40 mg Home Med (Patient's Own Control Medication Ii) 1 tab PO BID [facility] Last Admin: 10/31/17 10:54 Dose: 1 tab Sodium Chloride (Sodium Chloride 0.9%) 1,000 mls @ 100 mls/hr IV .Q10H [facility] Last Admin: 10/31/17 16:45 Dose: 100 mls/hr Cefepime HCl 1 gm/ Dextrose 50 mls @ 100 mls/hr IVPB Q12H [facility] Last Admin: 10/31/17 13:59 Dose: Not Given Gentamicin Sulfate/Sodium Chloride (Gentamicin Iv 80 Mg Premix) 80 mg in 100 mls @ 100 mls/hr IVPB Q12H [facility] Last Admin: 10/31/17 06:00 Dose: 100 mls/hr Ketorolac Tromethamine (Toradol) 15 mg IVP Q6 PRN PRN Reason: Pain, severe (8-10) Last Admin: 10/30/17 17:12 Dose: 15 mg Levetiracetam (Keppra) 750 mg PO BID [facility] Last Admin: 10/31/17 10:49 Dose: 750 mg Metoprolol Tartrate (Lopressor) 25 mg PO BID [facility] Last Admin: 10/26/17 18:32 Dose: Not Given Pantoprazole Sodium (Protonix Ec Tab) 40 mg PO DAILY [facility] Last Admin: 10/31/17 10:53 Dose: 40 mg Phenobarbital (Phenobarbital Tab) 32.4 mg PO TID [facility] Last Admin: 10/31/17 14:01 Dose: 32.4 mg Risperidone (Risperdal Tab) 2 mg PO DAILY [facility] Last Admin: 10/31/17 10:50 Dose: 2 mg Saccharomyces Boulardii (Florastor) 250 mg PO BID [facility] Last Admin: 10/31/17 10:48 Dose: 250 mg Tamsulosin HCl (Flomax) 0.4 mg PO DAILY [facility] Last Admin: 10/31/17 10:48 Dose: 0.4 mg - Labs Labs: 10/31/17 07:02 10/31/17 07:02 PT 16.9 SECONDS (9.7-12.2) H D 10/27/17 11:07 INR 1.5 D 10/27/17 11:07 APTT 32 SECONDS (21-34) D 10/27/17 11:07 - Constitutional Appears: Non-toxic, Chronically Ill - Head Exam Head Exam: NORMOCEPHALIC - Eye Exam Eye Exam: PERRL - ENT Exam ENT Exam: Mucous Membranes Dry - Neck Exam Neck Exam: absent: Lymphadenopathy - Respiratory Exam Respiratory Exam: Decreased Breath Sounds - Cardiovascular Exam Cardiovascular Exam: REGULAR RHYTHM - GI/Abdominal Exam GI & Abdominal Exam: Distended, Soft Assessment and Plan (1) Kidney stone on left side Status: Acute (2) Leukocytopenia Status: Acute (3) Pyelonephritis Status: Acute (4) Abdominal pain Status: Acute (5) Anemia Status: Acute (6) Cholelithiasis Status: Acute (7) Fever Status: Acute
[2017-10-31] MEDS: clonazePAM 0.25 MG TAB PO SCH (21:39)
[2017-10-31] MEDS ORDERED: Potassium Chloride 20 mEq ER Tab PO ONE (22:00)
[2017-11-01 00:40] VITALS: BP 110/69; PULSE 98; RESP 18; TEMP 98.8
[2017-11-01] MEDS: Sodium Chloride 0.9% 1,000 ML IV SCH ×2 (01:09→12:07)
[2017-11-01] MEDS: Gentamicin 80 mg in 0.9% NS 80 MG/100 ML BAG IVPB SCH (06:00)
[2017-11-01 08:21] LABS: BASO # 0.1 K/uL (0.0-0.2); BASO % 0.5 % (0.0-2.0); EOS # 0.2 K/uL (0.0-0.7); EOS % 1.4 % (0.0-4.0); HEMATOCRIT 24.9 % (34.0-47.0); LYMPH # 1.2 K/uL (1.0-4.3); LYMPH % 11.4 % (20.0-40.0); MEAN CELL VOLUME 88.7 fL (81.0-99.0); MEAN CORPUSCULAR HEMOGLOBIN 31.1 pg (27.0-31.0); MEAN CORPUSCULAR HGB CONC 35.1 g/dL (33.0-37.0); MEAN PLATELET VOLUME 8.6 fL (7.2-11.7); MONO # 1.8 K/uL (0.0-0.8); MONO % 16.7 % (0.0-10.0); PLATELET COUNT 203 K/uL (130-400); RED CELL DISTRIBUTION WIDTH 13.9 % (11.5-14.5); WHITE BLOOD COUNT 10.6 K/uL (4.8-10.8)
[2017-11-01 08:35] LABS: ALB/GLOB RATIO 0.8 (1.0-2.1); ALKALINE PHOSPHATASE 144 U/L (38-126); ALT/SGPT 55 U/L (9-52); AST/SGOT 21 U/L (14-36); BILIRUBIN,TOTAL 0.5 mg/dL (0.2-1.3); BLOOD UREA NITROGEN 5 mg/dL (7-17); CALCIUM 8.2 mg/dl (8.6-10.4); CARBON DIOXIDE 24 mmol/L (22-30); CHLORIDE 105 mmol/L (98-107); GFR AFRICAN-AMERICAN > 60; GLUCOSE,RANDOM 111 mg/dL (65-105); POTASSIUM 3.6 mmol/L (3.6-5.2); SODIUM 135 mmol/L (132-148)
--- NOTE | 2017-11-01 08:50 | PCM.URO ---
Urology Progress Note - Subjective Hematuria: Yes - Objective Lab Studies: Reviewed (pt is s/p ureteroscopy and laser of stone the post op xray on 10/30 the stent in good location and stone is gone, some stone fragments noted, gu plans : antibiotics as per id and repeat ultrasound , full note to be dictated) Lab Results Last 24 Hours: Laboratory Results - last 24 hr 10/31/17 11/01/17 11/01/17 07:02 08:02 08:02 WBC 10.6 RBC 2.81 L Hgb 8.7 L Hct 24.9 L MCV 88.7 MCH 31.1 H MCHC 35.1 RDW 13.9 Plt Count 203 MPV 8.6 Neut % (Auto) 70.0 Lymph % (Auto) 11.4 L [place] % (Auto) 16.7 H Eos % (Auto) 1.4 Baso % (Auto) 0.5 Neut # 7.4 H Lymph # 1.2 [place] # 1.8 H Eos # 0.2 Baso # 0.1 Neutrophils % (Manual) 60 Band Neutrophils % 7 H Lymphocytes % (Manual) 17 L Monocytes % (Manual) 14 H Eosinophils % (Manual) 1 Myelocytes % 1 H Platelet Estimate Normal Polychromasia Slight Hypochromasia (manual) Slight Sodium 135 Potassium 3.6 Chloride 105 Carbon Dioxide 24 Anion Gap 10 BUN 5 L Creatinine 0.6 L Est GFR ( Amer) > 60 Est GFR (Non-Af Amer) > 60 Random Glucose 111 H Calcium 8.2 L Total Bilirubin 0.5 AST 21 ALT 55 H Alkaline Phosphatase 144 H Total Protein 6.0 L Albumin 2.7 L Globulin 3.3 Albumin/Globulin Ratio 0.8 L Intake & Output: Intake & Output 10/31/17 11/01/17 11/01/17 18:59 06:59 18:59 Intake Total 550 2200 Output Total 450 Balance 550 1750 Intake: Intake, IV Amount 100 1600 Left Hand 100 1600 Oral 450 600 Output: Urine 450 Urine, Voided 450 Other: # Voids Urine, Voided 3 # Bowel Movements 3 0 Vital Signs: Vital Signs - 24 hr 10/31/17 10/31/17 10/31/17 15:00 16:20 23:45 Temperature 99.5 F 98.8 F Pulse Rate 107 H 107 H 98 H Respiratory 20 18 Rate Blood Pressure 132/78 132/78 110/69 O2 Sat by Pulse 95 95 95 Oximetry
[2017-11-01] MEDS: [UNRECOGNIZED DRUG - OTHER] PO SCH (10:06)
[2017-11-01] MEDS: DEXTROAMPHETAMINE PO SCH (10:06)
[2017-11-01] MEDS: Saccharomyces Boulardi 250 mg Cap PO SCH (10:06)
[2017-11-01] MEDS: Pantoprazole 40 mg EC Tab PO SCH (10:06)
[2017-11-01 10:37] LABS: EOSINOPHIL 1 % (0-4); METAMYELOCYTE 3 % (0-0); NEUTROPHIL 51 % (50-75); NUCLEATED RED BLOOD CELL 2 % (0-0); REACTIVE LYMPHOCYTES 1 % (0-0); TOTAL CELLS COUNTED 100
--- NOTE | 2017-11-01 12:29 | CP.PCM.PN ---
Subjective - Date & Time of Evaluation Date of Evaluation: 11/01/17 Time of Evaluation: 11:30 - Subjective Subjective: No complaints. Objective - Vital Signs/Intake and Output Vital Signs (last 24 hours): Temp Pulse Resp BP Pulse Ox 98.8 F 98 H 18 110/69 95 10/31/17 23:45 10/31/17 23:45 10/31/17 23:45 10/31/17 23:45 10/31/17 23:45 Intake and Output: 11/01/17 11/01/17 06:59 18:59 Intake Total 2200 Output Total 450 Balance 1750 - Medications Medications: Current Medications Acetaminophen (Tylenol 325mg Tab) 650 mg PO Q6H PRN PRN Reason: FOR FEVER OVER 100.4 F Last Admin: 10/30/17 17:10 Dose: 650 mg Amlodipine Besylate (Norvasc) 10 mg PO DAILY [facility] Last Admin: 11/01/17 10:06 Dose: 10 mg Clonazepam (Klonopin- Half Tab) 0.25 mg PO HS [facility] Last Admin: 10/31/17 21:39 Dose: 0.25 mg Duloxetine HCl (Cymbalta) 30 mg PO DAILY@1500 [facility] Last Admin: 10/31/17 14:01 Dose: 30 mg Duloxetine HCl (Cymbalta) 60 mg PO DAILY@0600 [facility] Last Admin: 11/01/17 05:57 Dose: 60 mg Enoxaparin Sodium (Lovenox) 40 mg SC DAILY [facility] Last Admin: 10/28/17 09:15 Dose: 40 mg Home Med (Patient's Own Control Medication Ii) 1 tab PO BID [facility] Last Admin: 11/01/17 10:06 Dose: 1 tab Sodium Chloride (Sodium Chloride 0.9%) 1,000 mls @ 100 mls/hr IV .Q10H [facility] Last Admin: 11/01/17 01:09 Dose: 100 mls/hr Cefepime HCl 1 gm/ Dextrose 50 mls @ 100 mls/hr IVPB Q12H [facility] Last Admin: 11/01/17 01:08 Dose: 100 mls/hr Gentamicin Sulfate/Sodium Chloride (Gentamicin Iv 80 Mg Premix) 80 mg in 100 mls @ 100 mls/hr IVPB Q12H [facility] Last Admin: 11/01/17 06:00 Dose: 100 mls/hr Ketorolac Tromethamine (Toradol) 15 mg IVP Q6 PRN PRN Reason: Pain, severe (8-10) Last Admin: 11/01/17 10:07 Dose: 15 mg Levetiracetam (Keppra) 750 mg PO BID [facility] Last Admin: 11/01/17 10:06 Dose: 750 mg Metoprolol Tartrate (Lopressor) 25 mg PO BID [facility] Last Admin: 10/26/17 18:32 Dose: Not Given Pantoprazole Sodium (Protonix Ec Tab) 40 mg PO DAILY [facility] Last Admin: 11/01/17 10:06 Dose: 40 mg Phenobarbital (Phenobarbital Tab) 32.4 mg PO TID [facility] Last Admin: 11/01/17 10:07 Dose: 32.4 mg Risperidone (Risperdal Tab) 2 mg PO DAILY [facility] Last Admin: 11/01/17 10:05 Dose: 2 mg Saccharomyces Boulardii (Florastor) 250 mg PO BID [facility] Last Admin: 11/01/17 10:06 Dose: 250 mg Tamsulosin HCl (Flomax) 0.4 mg PO DAILY [facility] Last Admin: 11/01/17 10:06 Dose: 0.4 mg - Labs Labs: 11/01/17 08:02 11/01/17 08:02 PT 16.9 SECONDS (9.7-12.2) H D 10/27/17 11:07 INR 1.5 D 10/27/17 11:07 APTT 32 SECONDS (21-34) D 10/27/17 11:07 - Head Exam Head Exam: ATRAUMATIC - Eye Exam Eye Exam: Normal appearance - ENT Exam ENT Exam: Mucous Membranes Dry - Respiratory Exam Respiratory Exam: NORMAL BREATHING PATTERN - Cardiovascular Exam Cardiovascular Exam: +S1, +S2 - GI/Abdominal Exam GI & Abdominal Exam: Normal Bowel Sounds Assessment and Plan (1) Anemia Assessment & Plan: chronic disease resolved DIC Status: Acute
--- NOTE | 2017-11-01 13:44 | US ---
PROCEDURE: Ultrasound of the Kidneys HISTORY: is there any left hydronephrosis/? abcess COMPARISON: CT abdomen and pelvis from 10/26/2017 TECHNIQUE: Sonogram of the kidneys. FINDINGS: RIGHT KIDNEY: Measures: 10.3 cm. Normal in size, contour and echogenicity. No solid mass lesion or hydronephrosis visualized. There are small nonobstructing stones, the larger in the lower pole measures 5 mm. LEFT KIDNEY: Measures: 11.4 cm. Normal in size, contour and echogenicity. There is a small nonobstructing stone in the lower pole. There is moderate hydronephrosis and moderate dilatation of the visualized proximal ureteral. A left ureteral stent is identified. OTHER FINDINGS: None. IMPRESSION: 1. Moderate left hydronephrosis and moderate dilatation of the visualized proximal ureteral. Left ureteral stent remains in place. 2. Tiny nonobstructing stone in the left lower pole. 3. Small nonobstructing stones in the right kidney, the largest in the lower pole measures 5 mm.
[2017-11-01] MEDS ORDERED: Pneumococcal 23-Valent Vaccine IM ONE (15:00)
== END 2017-11-01 16:41 | disposition home or self-care (01) | DRG 853 ==
LOC: C.ER 10:31 → C.9E 14:28 → C.3T 14:45
PROVIDERS: ADMIT Internal Medicine Nephrology; ATTEND Internal Medicine Nephrology
PROC: 0TC78ZZ Extirpation of Matter from Left Ureter, Via Natural or Artificial Opening Endoscopic (ICD-10-PCS; principal; 2017-10-30)
PROC: 0T778DZ Dilation of Left Ureter with Intraluminal Device, Via Natural or Artificial Opening Endoscopic (ICD-10-PCS; 2017-10-30)
PROC: BT141ZZ Fluoroscopy of Kidneys, Ureters and Bladder using Low Osmolar Contrast (ICD-10-PCS; 2017-10-30)
DX: A41.50 Gram-negative sepsis, unspecified (principal); D65 Disseminated intravascular coagulation [defibrination syndrome]; G40.509 Epileptic seizures related to external causes, not intractable, without status epilepticus; N12 Tubulo-interstitial nephritis, not specified as acute or chronic; N20.1 Calculus of ureter; S06.9X0S Unspecified intracranial injury without loss of consciousness, sequela; F20.9 Schizophrenia, unspecified; N13.9 Obstructive and reflux uropathy, unspecified; I10 Essential (primary) hypertension; F32.9 Major depressive disorder, single episode, unspecified; D64.9 Anemia, unspecified

== ENCOUNTER 2017-11-05 11:04 | Emergency (ER) | payer MEDICARE, SELFPAY ==
[2017-11-05 11:12] VITALS: BMI 25.7
--- NOTE | 2017-11-05 11:43 | C.PDOC ---
History Of Present Illness HPI: Patient is a 56 year old female with PMHx of hypertension, hx of kidney stone, pyelonephritis, schizophrenia, anemia presents to the ED requesting for a non-functional PICC line removal. Patient states that she had a PICC line placed on Saturday and the line hasnt worked since. Patient reports that she has been getting antibiotics from IV line on other hand. Patient denies having any fever, back pain, dysuria, or any other complaints. Time Seen by Provider: 11/05/17 11:28 Chief Complaint (Nursing): Medical Clearance History Per: Patient History/Exam Limitations: no limitations Onset/Duration Of Symptoms: Hrs Current Symptoms Are (Timing): Still Present Severity: Moderate Past Medical History Reviewed: Historical Data, Nursing Documentation, Vital Signs Vital Signs: Last Vital Signs Temp 98.3 F 11/05/17 11:43 Pulse 78 11/05/17 11:43 Resp 14 11/05/17 11:43 BP 97/91 H 11/05/17 11:43 Pulse Ox 95 11/05/17 12:55 - Medical History PMH: Anemia, Anxiety, Depression, HTN, Hyperlipidemia, Chronic Kidney Disease, Seizures Surgical History: Cholecystectomy (07/2017) - [facility] Procedures DILATION OF LEFT URETER WITH INTRALUMINAL DEVICE, ENDO (10/26/17) EXTIRPATION OF MATTER FROM LEFT URETER, ENDO (10/26/17) FLUOROSCOPY OF KIDNEY, URETER & BLADDER USING L OSM CONTRAST (10/26/17) TETANUS TOXOID ADMINIST (08/29/13) Family History: States: No Known Family Hx - Social History Hx Tobacco Use: No Hx Alcohol Use: No Hx Substance Use: No - Immunization History Hx Tetanus Toxoid Vaccination: No (08/29/2013) Hx Influenza Vaccination: Yes (2 weeks ago) Hx Pneumococcal Vaccination: Yes Review Of Systems Except As Marked, All Systems Reviewed And Found Negative. Constitutional: Negative for: Fever, Chills Neurological: Negative for: Weakness, Numbness Physical Exam - Physical Exam Appears: Well, Non-toxic, No Acute Distress Skin: Normal Color, Warm, Dry Head: Atraumatic, Normacephalic Eye(s): bilateral: Normal Inspection, EOMI Nose: Normal Chest: Symmetrical Cardiovascular: Rhythm Regular Respiratory: Normal Breath Sounds Gastrointestinal/Abdominal: Soft, No Tenderness Extremity: Other (PICC line to the right upper extremity and IV hemp lock on right hand) ED Course And Treatment O2 Sat by Pulse Oximetry: 95 (RA) Pulse Ox Interpretation: Normal Progress Note: Case discussed with Dr. Payton who requests a new PICC line be placed. No available services for new line to be places, pt was offered admission. Pt refuses admission noting she we [facility] Dr Payton was informed. Disposition - Disposition Disposition: HOME/ ROUTINE Disposition Time: 15:23 Condition: STABLE Forms: [employer] - Clinical Impression Clinical Impression: Occluded PICC line - PA / PIT SHOVELER / Resident Statement MD/DO has reviewed & agrees with the documentation as recorded. - Scribe Statement The provider has reviewed the documentation as recorded by the Scribe Brooklyn Kurtz All medical record entries made by the Scribe were at my direction and personally dictated by me. I have reviewed the chart and agree that the record accurately reflects my personal performance of the history, physical exam, medical decision making, and the department course for this patient. I have also personally directed, reviewed, and agree with the discharge instructions and disposition.
[2017-11-05 15:17] VITALS: BP 100/60; PULSE 61; RESP 18; TEMP 98.6
[2017-11-05 15:20] VITALS: O2SAT 95
== END 2017-11-05 15:10 ==
LOC: C.ER 11:04
DX: T82.898A Other specified complication of vascular prosthetic devices, implants and grafts, initial encounter (principal); E78.5 Hyperlipidemia, unspecified; I12.9 Hypertensive chronic kidney disease with stage 1 through stage 4 chronic kidney disease, or unspecified chronic kidney disease; N18.9 Chronic kidney disease, unspecified

== ENCOUNTER 2017-11-18 12:48 | Day surgery (SDC) | payer MEDICARE, SELFPAY ==
[2017-11-18 13:03] VITALS: BMI 24.5
[2017-11-18 13:49] LABS: PROTHROMBIN TIME 11.5 SECONDS (9.7-12.2)
[2017-11-18 14:16] LABS: BLOOD UREA NITROGEN 13 mg/dL (7-17); GFR AFRICAN-AMERICAN > 60; GFR NON-AFRICAN AMERICAN > 60
--- NOTE | 2017-11-18 14:37 | RAD ---
Chest x-ray two views History: Preoperative evaluation. Comparison: 11/18/2017 Findings: No focal infiltrate or effusion. Biapical pleural thickening. Bibasilar breast nipple shadows. Vertically-oriented linear increased markings at the left lung base laterally which may represent some atelectasis. Clinical correlation. Surgical clips in the right upper abdomen. Left nephro ureteral stent in place. Heart size within normal limits. Degenerative changes in the spine and shoulders. Impression: No focal infiltrate or effusion. Biapical pleural thickening. Bibasilar breast nipple shadows. Vertically-oriented linear increased markings at the left lung base laterally which may represent some atelectasis. Clinical correlation. Surgical clips in the right upper abdomen.
[2017-11-18] MEDS ORDERED: Lactated Ringer's 1,000 ML IV ONE (16:40)
[2017-11-18] MEDS ORDERED: cefTRIAXone IV 1 gm in Dextros 50 ML IVPB ONE (16:42)
[2017-11-18] MEDS ORDERED: Propofol 10 mg/ml Inj (20 ML) ONE (16:48)
[2017-11-18] MEDS ORDERED: Oxycodone/Acetaminophen 5/325 mg Tab PO PRN (16:54)
[2017-11-18] MEDS ORDERED: Ciprofloxacin 400mg/200ml D5W 400 MG/200 ML BAG IVPB SCH (17:00)
[2017-11-18] MEDS: Gentamicin 80 mg in 0.9% NS 80 MG/100 ML BAG IVPB ONE ×2 (17:03→17:05)
[2017-11-18 20:38] VITALS: RESP 12; O2SAT 100
[2017-11-18 20:44] VITALS: BP 135/70; PULSE 80; TEMP 97
--- NOTE | 2017-11-19 14:00 | RAD ---
PROCEDURE: HISTORY: As above COMPARISON: An flat plate 11/18/2017 at 1648 hours TECHNIQUE: Total fluoroscopic time utilized during the procedure: 7.5 seconds. Total dose 0.58628 mGy cm squared FINDINGS: Submitted images from the current procedure: 3 Please refer to the physician's notes performing the procedure. IMPRESSION: Less than 1 hour fluoroscopic time utilized during performance of the procedure
--- NOTE | 2017-11-19 14:03 | RAD ---
HISTORY: URETERAL STONE COMPARISON: 10/29/2017 FINDINGS: BOWEL: Stool retention.. No obstruction. No free air. BONES: L4-5 and L5-S1 hypertrophic facet arthrosis -similar OTHER FINDINGS: Right upper quadrant post cholecystectomy clips -similar 4 mm right upper quadrant calcification all with a a right lower renal pole calculus -similar Interval double-J left ureteral stent placement. Prior left L3-4 disc level 12.6 cm left ureteral calculus longer seen here or along the distal ureteral/stent or bladder course IMPRESSION: Interval left ureteral calculus removal and/or passage. Interval left ureteral stent placement 4 mm right lower renal pole calculus -similar Postcholecystectomy clips -similar Interval increased stool retention.
--- NOTE | 2017-11-20 23:13 | CARD ---
APPROVED REPORT EKG Measurement Heart [id number] <Conclusion> Normal sinus rhythm Left axis deviation Abnormal ECG
--- NOTE | 2017-12-30 07:49 | OP ---
PROCEDURE DATE: 11/18/2017 PREOPERATIVE DIAGNOSES: Urolithiasis, hematuria, hydronephrosis. POSTOPERATIVE DIAGNOSES: Urolithiasis, hematuria, hydronephrosis. PROCEDURES: Examination under anesthesia, cystoscopy, removal of a double J-stent, insertion of a left double J-stent, left ureteroscopy, and a left laser lithotripsy. BLOOD LOSS: Less than 10 mL. DRAINS: Double J-stent. COMPLICATIONS: There were no complications. INDICATION. See the history and physical and see the previously dictated notes. Very pleasant lady, here for the above procedure. She has had one course. Very pleasant, but presented initially with sepsis, we had put a stent in and actually made with the patient. Now on finding today, we are planning on considering removing the stent, but it turned out is actually a very encrusted stent and the patient has further stone, we thought consider reinserting a new double J-stent. Repeat itself, risks, benefits and alternatives discussed with the patient, options of open surgery, ureteroscopy as well lithotripsy which were all discussed. The patient understood and wished to proceed with procedure. DESCRIPTION OF PROCEDURE: After obtaining informed consent, the patient was placed on the table. Routine monitoring devices were placed. Time-out was called to confirm the patient, antibiotics, prophylaxis, the patient's position etc,. Program Schedule Clerk film showed ureteral stent was identified which was very encrusted. Removed we cut the distal portion. We put a wire up to kidney. Entire procedure was done with the cameras and fluoroscopic imaging to assist us. My assistant cook helping me with this. Procedure continued. With the wires in place, we went adjacent to the wire with ureteroscope. We identified some stone material. At this point, we put a double J-stent in. We confirmed our positioning. The patient tolerated the procedure well without any complication. Nicholas Michael MD
== END 2017-11-18 19:05 | disposition home or self-care (01) ==
LOC: C.SDS 12:48
PROVIDERS: ATTEND Urology
DX: N13.2 Hydronephrosis with renal and ureteral calculous obstruction (principal); R31.9 Hematuria, unspecified
CPT/HCPCS: 36415; 50953; 50961; 71046; 74018; 80048; 85610; 85730; 86850; 86900; 93005; C1769; C2617; J0696; J1580; J2704; J7120

== ENCOUNTER 2017-12-03 12:38 | Day surgery (SDC) | payer MEDICARE, SELFPAY ==
[2017-12-03 13:28] LABS: BASO # 0.1 K/uL (0.0-0.2); BASO % 1.1 % (0.0-2.0); EOS # 0.2 K/uL (0.0-0.7); EOS % 4.1 % (0.0-4.0); HEMOGLOBIN 10.6 g/dL (11.0-16.0); LYMPH # 1.3 K/uL (1.0-4.3); LYMPH % 21.5 % (20.0-40.0); MEAN CELL VOLUME 88.1 fL (81.0-99.0); MEAN CORPUSCULAR HEMOGLOBIN 28.5 pg (27.0-31.0); MEAN CORPUSCULAR HGB CONC 32.4 g/dL (33.0-37.0); MEAN PLATELET VOLUME 7.5 fL (7.2-11.7); MONO # 0.5 K/uL (0.0-0.8); MONO % 8.9 % (0.0-10.0); NEUT # 3.9 K/uL (1.8-7.0); NEUT % 64.4 % (50.0-75.0); RBC 3.71 Mil/uL (3.80-5.20); RED CELL DISTRIBUTION WIDTH 17.6 % (11.5-14.5)
[2017-12-03] MEDS ORDERED: Iohexol 240 (50 ml) ONE (13:49)
[2017-12-03] MEDS ORDERED: Lactated Ringer's 1,000 ML IV ONE ×2 (13:54)
[2017-12-03] MEDS: cefTRIAXone 1 gm 1 GM/100 ML BAG IVPB ONE ×3 (13:54→14:50)
[2017-12-03] MEDS ORDERED: Midazolam 2 MG/2 ML VIAL ONE (14:45)
[2017-12-03] MEDS ORDERED: Propofol 10 mg/ml Inj (20 ML) ONE (14:49)
[2017-12-03] MEDS ORDERED: Oxycodone/Acetaminophen 5/325 mg Tab PO PRN ×2 (14:51→14:53)
[2017-12-03] MEDS ORDERED: Ciprofloxacin 400mg/200ml D5W 400 MG/200 ML BAG IVPB STA (15:18)
[2017-12-03] MEDS ORDERED: Sodium Chloride 0.9% 1,000 ML IV ONE (15:21)
--- NOTE | 2017-12-03 17:09 | RAD ---
HISTORY: LEFT URETERAL STONE COMPARISON: 11/18/2017 FINDINGS: BOWEL: Stool retention.. No obstruction. Right lower renal pole 4 to 5 mm calculus -similar-appearing. No left renal calculi noted. left ureteral stent similar appearing. . The prior 2 small adjacent calculi alongside the stent at approximately the junction of the middle and distal 3rd of the stent are not seen as close together as before 1 may have passed and/or is now less dense appearing smaller 2 mm calcification still projects between the left sacral border and left ureteral stent as it did before. . A earlier proximal left ureteral large calculus is no longer evident. BONES: Normal. OTHER FINDINGS: None. IMPRESSION: The much earlier larger left ureteral calculus is no longer seen as noted previously Smaller calcifications project near the mid to distal left ureter as detailed above. 1 of these latter 2 may have progressed further along the left ureteral stent and/or may have passed.
--- NOTE | 2017-12-03 17:10 | RAD ---
PROCEDURE: HISTORY: As above COMPARISON: None TECHNIQUE: Total fluoroscopic time utilized during the procedure: 11.4 seconds. Total dose 0.649 mGy cm squared FINDINGS: Submitted images from the current procedure: 8 Please refer to the physician's notes performing the procedure. IMPRESSION: Less than 1 hour fluoroscopic time utilized during performance of the procedure
[2017-12-03 17:27] VITALS: RESP 16
[2017-12-03 18:53] VITALS: BP 129/66; PULSE 68; TEMP 97.3; O2SAT 100
--- NOTE | 2018-01-13 09:17 | OP ---
PROCEDURE DATE: 12/03/2017 PREOPERATIVE DIAGNOSES: Urolithiasis, hematuria, hydronephrosis, previous urosepsis, and stone disease. POSTOPERATIVE DIAGNOSES: Urolithiasis, hematuria, hydronephrosis, previous urosepsis, and stone disease. PROCEDURES: Cystoscopy, removal of left double-J stent, left retrograde pyelogram, and left ureteroscopy. ESTIMATED BLOOD LOSS: Less than 10 mL. There were no complications. FINDINGS: There are no remnant stones in between the ureter, and there were no complications. INDICATIONS: See history and physical for further details. A very pleasant lady who initially presented with severe sepsis. At that time, the patient had a cysto, stent, ureteroscopy; all these are dictated in previous notes, to make sure no residual, and she is here now today for the above-listed procedures. DESCRIPTION OF PROCEDURE: After obtaining informed consent, the patient was placed on the table. Routine monitors were placed. Time-out was called. We confirmed the patient positioning. Antibiotic prophylaxis was used, again, especially given her history. The patient was given antibiotic prophylaxis. Cystoscopy, bilateral retrograde pyelogram. The endoscope was introduced via urethra. The old double-J stent was identified, then we removed the wires, passed up to the kidney. We now went adjacent to the wire with the rigid ureteroscope all the way to the kidney. No further stones were identified at this point. A retrograde pyelogram was also performed, but no definite stones identified. At this point, the bladder was emptied and the cystoscope was removed. The patient tolerated the procedure well without complications. Nicholas Michael MD
== END 2017-12-03 18:56 | disposition home or self-care (01) ==
LOC: C.SDS 12:38
PROVIDERS: ATTEND Urology
DX: N13.2 Hydronephrosis with renal and ureteral calculous obstruction (principal)
CPT/HCPCS: 36415; 52351; 74018; 85025; C1769; C2617; J0696; J0744; J1170; J1580; J7040; J7120

== ENCOUNTER 2018-05-05 10:31 | Inpatient (IN) | payer MEDICARE, OTHER ==
[2018-05-05 10:31] VITALS: BMI 24.5
--- NOTE | 2018-05-05 11:09 | C.PDOC ---
History Of Present Illness 57 yo female w/PMhx of schizoaffective, bipolar ds, sz ds, come in for evaluation of auditory hallucination developed for past few weeks, " telling me constantly to overdose myself". Otherwise, pt denies fever, chills, dizziness, CP, SOB, dyspnea, palpitation, abd. pain, V/D, UTI sx. At the time of evaluation , pt appears appropriate, comfortable, not in any apparent distress. 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16 last seizure nov 10 2017) Surgical History: Cholecystectomy (07/2017), Endoscopy - [facility] Procedures DILATION OF LEFT URETER WITH INTRALUMINAL DEVICE, ENDO (10/26/17) EXTIRPATION OF MATTER FROM LEFT URETER, ENDO (10/26/17) FLUOROSCOPY OF KIDNEY, URETER & BLADDER USING L OSM CONTRAST (10/26/17) TETANUS TOXOID ADMINIST (08/29/13) Family History: States: Unknown Family Hx - Social History Hx Tobacco Use: No Hx Alcohol Use: No Hx Substance Use: No - Immunization History Hx Tetanus Toxoid Vaccination: No (08/29/2013) Hx Influenza Vaccination: Yes (2 weeks ago) Hx Pneumococcal Vaccination: Yes Review Of Systems Except As Marked, All Systems Reviewed And Found Negative. Constitutional: Negative for: Fever, Chills ENT: Negative for: Throat Pain, Throat Swelling Cardiovascular: Negative for: Chest Pain, Palpitations, Orthopnea, Edema, Light Headedness Respiratory: Negative for: Cough, Shortness of Breath, Wheezing Gastrointestinal: Negative for: Nausea, Vomiting, Abdominal Pain, Diarrhea Genitourinary: Negative for: Dysuria, Incontinence Musculoskeletal: Negative for: Neck Pain, Back Pain Skin: Negative for: Rash Neurological: Negative for: Weakness, Numbness, Seizures, Altered Mental Status , Headache, Dizziness Psych: Positive for: Suicidal ideation Physical Exam - Physical Exam Appears: Well, Non-toxic, No Acute Distress Skin: Normal Color, Warm, Dry, No Rash Head: Normacephalic Eye(s): bilateral: PERRL Ear(s): Bilateral: Normal Nose: No Flaring, No Discharge Throat: No Erythema, No Drooling Neck: Trachea Midline, Supple Cardiovascular: Rhythm Regular Respiratory: No Decreased Breath Sounds, No Accessory Muscle Use, No Stridor, No Wheezing Gastrointestinal/Abdominal: Soft, No Tenderness, No Distention, No Guarding Back: No CVA Tenderness Extremity: Normal ROM, No Deformity, No Swelling ED Course And Treatment - Laboratory Results Result Diagrams: 05/05/18 11:48 05/05/18 11:48 Lab Interpretation: No Acute Changes ECG: Interpreted By Me, Viewed By Me Interpretation Of ECG: SR@71/min,LAD, RBBB, no acute T wave or ST-T changes. O2 Sat by Pulse Oximetry: 99 Pulse Ox Interpretation: Normal - Radiology CXR: Interpreted by Me, Viewed By Me CXR Interpretation: Yes: No Acute Disease Progress Note: Pt was OBS in ED for 2 hours and remained stable. On re- evaluation, pt is afebrile, hemodynamicaly stable. Non-toxic. Tolerate Po well in ED. Neck: SUpple, (-) JVD, (-) carotid bruits B/L. ENT: no acute findings. Lungs: CTA B/L, BS equal B/L. CVS: (+)S1S2, reg. Abd: benign, (-) guarding, (-) rebound, (-) RLQ tenderness. Neurologicaly intact. Blood work review- no acute abnormalities. UA - normal study. EKG, CXR- no acute findings. Pt is medically cleared for PES evaluation. After pt was evaluated by PES, case discussed with [id number] and admission to spych floor arranged. Pt agrees with plan. Disposition - Disposition Disposition: HOSPITALIZED Disposition Time: 13:10 Condition: STABLE Forms: [facility] (Japanese) - Clinical Impression Clinical Impression: Schizoaffective disorder
[2018-05-05 11:58] LABS: BASO # 0.1 K/uL (0.0-0.2); BASO % 1.2 % (0.0-2.0); EOS # 0.1 K/uL (0.0-0.7); EOS % 1.7 % (0.0-4.0); HEMOGLOBIN 14.1 g/dL (11.0-16.0); LYMPH # 1.6 K/uL (1.0-4.3); LYMPH % 29.5 % (20.0-40.0); MEAN CELL VOLUME 90.7 fL (81.0-99.0); MEAN CORPUSCULAR HEMOGLOBIN 31.5 pg (27.0-31.0); MEAN CORPUSCULAR HGB CONC 34.7 g/dL (33.0-37.0); MEAN PLATELET VOLUME 7.4 fL (7.2-11.7); MONO # 0.5 K/uL (0.0-0.8); NEUT # 3.1 K/uL (1.8-7.0); NEUT % 57.6 % (50.0-75.0); NRBC % 0.1 % (0.0-2.0); RBC 4.48 Mil/uL (3.80-5.20); RED CELL DISTRIBUTION WIDTH 14.1 % (11.5-14.5); SQUAMOUS EPITHIAL 3 /hpf (0-5); URINE BACTERIA RARE (<OCC); URINE BILIRUBIN NEGATIVE (NEGATIVE); URINE BLOOD NEGATIVE (NEGATIVE); URINE CLARITY Hazy (Clear); URINE COLOR Yellow (YELLOW); URINE GLUCOSE (UA) NORMAL (Normal); URINE LEUKOCYTE ESTERASE NEG Leu/uL (Negative); URINE PROTEIN NEGATIVE (NEGATIVE); URINE UROBILINOGEN NORMAL mg/dL (0.2-1.0); WHITE BLOOD COUNT 5.5 K/uL (4.8-10.8)
[2018-05-05 12:13] LABS: ALB/GLOB RATIO 1.6 (1.0-2.1); ALBUMIN 4.6 g/dL (3.5-5.0); ALT/SGPT 40 U/L (9-52); AST/SGOT 31 U/L (14-36); BLOOD UREA NITROGEN 16 mg/dL (7-17); CALCIUM 9.7 mg/dl (8.6-10.4); GFR AFRICAN-AMERICAN > 60; GFR NON-AFRICAN AMERICAN > 60
--- NOTE | 2018-05-05 12:24 | RAD ---
HISTORY: Detox/Psy COMPARISON: 11/18/2017 TECHNIQUE: Chest PA and lateral FINDINGS: LUNGS: No active pulmonary disease. PLEURA: No significant pleural effusion identified. No pneumothorax apparent. CARDIOVASCULAR: Normal. OSSEOUS STRUCTURES: No significant abnormalities. VISUALIZED UPPER ABDOMEN: Normal. OTHER FINDINGS: None. IMPRESSION: No active disease.
[2018-05-05 12:25] LABS: BENZODIAZEPINES, UR NEGATIVE (NEGATIVE); OPIATES, UR NEGATIVE (NEGATIVE); PHENCYCLIDINE, UR NEGATIVE (NEGATIVE)
[2018-05-05 12:50] LABS: BARBITURATES, UR POSITIVE (NEGATIVE)
--- NOTE | 2018-05-06 01:43 | PCM.BM ---
<Nelsy Weir - Last Filed: 05/06/18 01:40> Treatment Plan Problems - Problems identified on initial assessmt Depression Date Initiated: 05/05/18 Time Initiated: 15:30 Assessment reference: NA Status: Active Treatment assets and liabiliti Patient Assests: negotiates basic needs, good past tx response Patient Liabilities: relationship conflicts, medical problems - Milieu Protocol Maintain good personal hygiene: daily Encourage regular showers, daily Remind patient to perform daily oral care, every shift Assist patient to perform ADL's Conduct patient checks and document Observation sheet: Q15 minutes Maintain personal safety: every shift Educate patient to report safety concerns to staff, every shift Monitor environment for contraband/sharps Medication safety: Monitor for expected outcome, potential side effects: every shift, Assess barriers to learning: every shift, Assess readiness for medication education: every shift <Juliana Verma - Last Filed: 05/07/18 10:35> Family Contact Family involvement: Family/SO is involved Family contact: Patient declines to allow family contact at present - Goals for Treatment Patient goals for treatment: "I want to go home." Discharge/Continuing Care - Education Needs Education Needs: Patient Medication, Patient Coping Skills - Discharge Discharge Criteria: Tolerates medication w/o severe side effects, Reduction of target symptoms Discharge to:: Home - Treatment Team Participation Discussed with Family/SO: No Was Patient/Family/SO present at Treatment Team Meeting: Yes
[2018-05-06 06:32] VITALS: O2SAT 98
--- NOTE | 2018-05-06 10:47 | PCM.PSYCH ---
Initial Psychiatric Evaluation - Initial Psychiatric Evaluation Type of Admission: Voluntary Legal Status: Capacity Chief Complaint (in patient's own words): I was hearing voices.' History of Present Illness and Precipitating Events: Pt is a 57 year old female referred by psychiatrist Dr. Ford at [facility] for psychiatric admission due to depression and S/I with plan to overdose on pills due to command hallucinations. Pt reports having a psychiatric hx since her teens and states that her first admission was in [place] at [facility] [place] after her doctor overdosed her on phenobarbital and it caused her to have auditory hallucinations. Pt reports her next admission was in 1985 where pt was self medicating on THC and was bib mobile crisis after being found at home screaming. Pt states she was put back on phenobarbital 6 years ago and the voices started up again but was put on risperdal and that helped stop the voices. Pt reports that within the last week pt went to her neurologist to have a balance test done on a VR system and as pt was leaving the office she had a seizure. Pt reports that the auditory hallucinations began shortly after. Pt reports that the risperdal has not helped stop the voices this time. Pt reports the voices "they wont shut up." Per triage note, pt suffered a brain injury at age 16. Pt also has a hx of seizures and is on several different medical meds. Pt reports no disturbance in sleep and appetite. Pt denies any current substance abuse but reports hx of THC. Past medical history HTN, history of seizures Current Medications: Active Medications Generic Name Dose Route Start Last Admin Trade Name Freq PRN Reason Stop Dose Admin Amlodipine Besylate 5 mg 05/06/18 10:00 05/06/18 09:43 Norvasc PO 5 mg DAILY YADIRA Administration Chlordiazepoxide 25 mg 05/05/18 16:55 Librium PO 05/06/18 12:00 Q8 PRN withdrawal symptoms Duloxetine HCl 20 mg 05/06/18 10:00 05/06/18 09:43 Cymbalta PO 20 mg DAILY YADIRA Administration Hydroxyzine HCl 25 mg 05/05/18 16:54 Atarax PO Q6H PRN Anxiety Levetiracetam 500 mg 05/05/18 18:00 05/06/18 09:43 Keppra PO 500 mg BID YADIRA Administration Nicotine 1 patch 05/05/18 16:30 05/06/18 09:43 Nicoderm Cq TD 1 patch DAILY YADIRA Administration Phenobarbital 32.4 mg 05/06/18 10:00 05/06/18 09:43 Phenobarbital Tab PO 32.4 mg TID YADIRA Administration Risperidone 0.5 mg 05/05/18 18:00 05/06/18 09:43 Risperdal Tab PO 0.5 mg BID YADIRA Administration Past Psychiatric History - Past Psychiatric History Previous Treatment History: Inpatient Pertinent Medical Hx (Current Medical&Sleep Prob, Allergies): Allergies Allergy/AdvReac Type Severity Reaction Status Date / Time citric acid Allergy RASH Verified 05/05/18 10:49 fluoxetine HCl [From Prozac] Allergy RASH Verified 05/05/18 10:49 phenytoin sodium Allergy RASH Verified 05/05/18 10:49 [From Dilantin] phenytoin sodium extended Allergy RASH Verified 05/05/18 10:49 [From Dilantin] darvon Allergy Uncoded 05/05/18 10:49 Clonazepam 0.5 mg PO DAILY 05/05/18 Duloxetine HCl [Duloxetine] 60 mg PO DAILY 05/05/18 Levetiracetam 1,000 mg PO DAILY 05/05/18 Methylphenidate [Ritalin] 20 mg PO DAILY 05/05/18 Metoprolol Tartrate 25 mg PO BID 05/05/18 Modafinil [Provigil] 200 mg PO DAILY 05/05/18 Omeprazole 40 mg PO DAILY 05/05/18 Phenobarbital [PHENobarbital Tab] 97.2 mg PO QPM 05/05/18 amLODIPine [Norvasc] 5 mg PO DAILY 05/05/18 Review of Systems - Review of Systems All systems: reviewed and no additional remarkable complaints except - Psychiatric Psychiatric: Anxiety, Irritability, Suicidal Ideation Mental Status Examination - Personal Presentation Personal Presentation: Looks stated age - Affect Affect: Constricted, Depressed - Motor Activity Motor Activity: Calm - Reliability in Providing Information Reliability in Providing Information: Fair - Speech Speech: Organized - Mood Mood: Depressed, Anxious - Formal Thought Process Formal Thought Process: No Impairment - Obsessions/Compulsions Obsessions: No Compulsions: No - Cognitive Functions Orientation: Person, Place, Situation, Time Sensorium: Alert Attention/Concentration: Attentive Abstract Thinking: [place] Estimate of Intelligence: Below average Judgement: Imparied, as evidence by: Poor judgement, Imparied, as evidence by: Lack of insight into illness - Risk Risk: Suicidal, Diminished functioning - Strength & Assets Inventory Strength & Assets Inventory: Cooperative - Limitations Limitations: Living alone DSM 5 DX - DSM 5 DSM 5 Diagnosis: Bipolar disorder mixed severe without psychotic features - Recommended/Plan of Treatment Treatment Recommendations and Plan of Treatment: Bipolar disorder mixed severe without psychotic features CBT Psychoeducation Supportive therapy, group therapy, individual therapy Trazodone 50 mg by mouth daily at bedtime Hydroxyzine 25 mg by mouth every 6 hours when necessary Gabapentin 300 mg po TID Cymbalta 60 mg daily Hold Adderall Continue barbidurates 32.4 mg 3 times daily Risperdal 0.5 mg by mouth twice a day Keppra 500 mg by mouth twice a day
[2018-05-06] MEDS: Pantoprazole 40 mg EC Tab PO SCH (14:12)
--- NOTE | 2018-05-06 19:37 | CARD ---
APPROVED REPORT EKG Measurement Heart [id number] <Conclusion> Normal sinus rhythm Incomplete right bundle branch block Borderline ECG
[2018-05-07 06:19] VITALS: BP 105/71; PULSE 78; RESP 20; TEMP 98.2
[2018-05-07] MEDS: Pantoprazole 40 mg EC Tab PO SCH (09:54)
--- NOTE | 2018-05-07 11:02 | PCM.PYCHDC ---
Mental Status Examination - Mental Status Examination Orientation: Person, Place, Situation, Time Memory: Intact Mood: Neutral Affect: Constricted Speech: Soft Attention: WNL Concentration: WNL Association: WNL Fund of Knowledge: WNL Formal Thought Process: No Impairment Description of patient's judgement and insight: GOOD, FAIR Psychotic Thoughts and Behaviors: Denies any AVH Suicidal Ideation: No Current Homicidal Ideation?: No Discharge Summary - Discharge Note Reason for Hospitalization: Pt is a 57 year old female referred by psychiatrist Dr. Ford at [facility] for psychiatric admission due to depression and S/I with plan to overdose on pills due to command hallucinations. Pt reports having a psychiatric hx since her teens and states that her first admission was in 1984 at [facility] [place] after her doctor overdosed her on phenobarbital and it caused her to have auditory hallucinations. Pt reports her next admission was in 1985 where pt was self medicating on THC and was bib mobile crisis after being found at home screaming. Pt states she was put back on phenobarbital 6 years ago and the voices started up again but was put on risperdal and that helped stop the voices. Pt reports that within the last week pt went to her neurologist to have a balance test done on a VR system and as pt was leaving the office she had a seizure. Pt reports that the auditory hallucinations began shortly after. Pt reports that the risperdal has not helped stop the voices this time. Pt reports the voices "they wont shut up." Per triage note, pt suffered a brain injury at age 16. Pt also has a hx of seizures and is on several different medical meds. Pt reports no disturbance in sleep and appetite. Pt denies any current substance abuse but reports hx of THC. Laboratory Data: Abnormal Lab Results 05/05/18 12:44 Phenobarbital 12.1 L Consultations:: List each consultation separately and include: 1. Reason for request. 2. Findings. 3. Follow-up Summary of Hospital Course include:: 1. Description of specific treatment plan utilized for patients during their course of treatmen. 2. Summarize the time- course for resolution of acute symptoms and/or regressed behaviors. 3. Describe issues identified and worked on during hospitalization. 4. Describe medication utilized. 5. Describe medical problems identified and treated. 6. Reassessment of suicide risk Summary of Hospital Course: Pt is a 57 year old female referred by psychiatrist Dr. Ford at [facility] for psychiatric admission due to depression and S/I with plan to overdose on pills due to command hallucinations. Pt reports having a psychiatric hx since her teens and states that her first admission was in 1984 at [facility] [place] after her doctor overdosed her on phenobarbital and it caused her to have auditory hallucinations. Pt reports her next admission was in 1985 where pt was self medicating on THC and was bib mobile crisis after being found at home screaming. Pt states she was put back on phenobarbital 6 years ago and the voices started up again but was put on risperdal and that helped stop the voices. Pt reports that within the last week pt went to her neurologist to have a balance test done on a VR system and as pt was leaving the office she had a seizure. Pt reports that the A/Hs began shortly after. Pt reports that the risperdal has not helped stop the voices this time. Pt reports the voices "they wont shut up." Per triage note, pt suffered a brain injury at age 16. Pt also has a hx of seizures and is on several different medical meds. Pt reports no disturbance in sleep and appetite. Pt denies any current substance abuse but reports hx of THC. Pt is seeking psychiatric admission and awaiting medical clearance at this time. and sitter at pt's side. Pt is aaxo4, calm and cooperative. Pt was making poor eye contact playing a card game on her phone. Pt reports she is hearing voices at this time. Pt admits to S/I with a plan to overdose on pills. Pt states she does not want to do it but the voices would not stop. Pt denies H/I. Pt admits to V/Hs command in nature. Pt denies delusions. [ End ] - Final Diagnosis (DSM 5) Condition upon Discharge: STABLE DSM 5: Bipolar disorder mixed severe without psychotic features Disposition: HOME/ ROUTINE Follow-up Treatment Plan: Bipolar disorder mixed severe without psychotic features CBT Psychoeducation Supportive therapy, group therapy, individual therapy Trazodone 50 mg by mouth daily at bedtime Hydroxyzine 25 mg by mouth every 6 hours when necessary Gabapentin 100 mg po TID Depakote 250 mg by mouth twice a day Prescriptions/Medication Reconciliation: Duloxetine HCl 60 mg PO DAILY #1 capsule. levETIRAcetam [Keppra] 500 mg PO BID #1 tab risperiDONE [RisperDAL Tab] 0.5 mg PO BID #1 tab - Smoking Cessation Smoking Cessation Medication prescribed: No - Antipsychotic Medications Pt discharged on 2 or more routine antipsychotic medications: No
== END 2018-05-07 11:10 | disposition home or self-care (01) | DRG 885 ==
LOC: C.ER 10:31 → C.9E 13:05 → C.5E 14:52
PROVIDERS: ADMIT Psychiatry & Neurology Psychiatry; ATTEND Psychiatry & Neurology Psychiatry
PROC: GZHZZZZ Group Psychotherapy (ICD-10-PCS; principal; 2018-05-05)
PROC: GZ58ZZZ Individual Psychotherapy, Cognitive-Behavioral (ICD-10-PCS; 2018-05-05)
PROC: GZ56ZZZ Individual Psychotherapy, Supportive (ICD-10-PCS; 2018-05-05)
DX: F31.63 Bipolar disorder, current episode mixed, severe, without psychotic features (principal); R45.851 Suicidal ideations; E78.00 Pure hypercholesterolemia, unspecified; I10 Essential (primary) hypertension; F25.9 Schizoaffective disorder, unspecified; R56.9 Unspecified convulsions; Z87.820 Personal history of traumatic brain injury

== ENCOUNTER 2019-01-02 13:37 | Outpatient (CLI) | payer MEDICARE, SELFPAY | END 2019-01-02 13:38 | disposition home or self-care (01) | LOC: C.USIC 13:37 ==